=== PATIENT | female | born 1940 | race Caucasian/White ===

== ENCOUNTER → 2016-10-06 | Outpatient (CLI) | payer MEDICARE ==
[~2016-10-06] MED LIST: ASPI81TA11 PO; BUME1TAB PO; BUME1TAB26 PO; CARV3.125 PO; LACT PO; METR-1 PO; PLAV75TA29 PO
[2016-10-06 19:24] LABS: C. DIFF EPI 027 PRESUMPTIVE NEGATIVE (NEGATIVE); C. DIFF TOXIN PCR NEGATIVE (NEGATIVE)
== END ==
LOC: PLAB 15:01
PROVIDERS: ATTEND Family Medicine
DX: R19.7 Diarrhea, unspecified (principal)
CPT/HCPCS: 87493

== ENCOUNTER 2016-10-30 15:16 | Inpatient (IN) | payer MEDICARE ==
[~2016-10-30] VITALS: Ht 160 cm; Wt 48.0 kg
[2016-10-30 15:18] VITALS: BP 134/63; PULSE 86; RESP 14; TEMP 97.7; O2SAT 95
[2016-10-30] MEDS ORDERED: SODIUM CHLORIDE 0.9% FLUSH 10 ML FLUSH IVF PRN (16:45)
[2016-10-30] MEDS ORDERED: DIATRIZOATE MEGLUM/DIATRIZOATE SOD 9 ML CUP ONE (16:52)
--- NOTE | 2016-10-30 17:03 | RADRPT ---
EXAM DATE/TIME: 10/30/2016 16:42 [facility] COMPARISON: No previous studies available for comparison. INDICATIONS : Patient has been short of breath for two weeks. MEDICAL HISTORY : A-Fib, Atrial Stenosis. SURGICAL HISTORY : None. ENCOUNTER: Initial ACUITY: 2 weeks PAIN SCORE: 0/10 LOCATION: Bilateral chest FINDINGS: A single view of the chest demonstrates bilateral small effusions with concomitant atelectatic change s at the left base. Heart size is normal. There appears to be a partial left mastectomy with axillary emilia dissection. Osseous structures are intact. CONCLUSION: 1. Small bilateral pleural effusions and concomitant left basilar atelectatic changes. 2. Apparent partial left mastectomy with left axillary emilia dissection. Odell Redman MD on October 30, 2016 at 17:01 Board Certified Radiologist. This report was verified electronically.
[2016-10-30 17:13] VITALS: RESP 18; O2SAT 97
[2016-10-30 17:23] LABS: AUTOMATED NEUTROPHIL # 7.5 TH/MM3 (1.8-7.7); BASOPHIL # 0.1 TH/MM3 (0-0.2); BASOPHIL % 0.7 % (0.0-2.0); EOSINOPHIL # 0.4 TH/MM3 (0-0.4); EOSINOPHIL % 4.1 % (0.0-4.0); HEMO FLAGS DIFF FINAL; LYMPH % 17.1 % (9.0-44.0); LYMPHOCYTE # 1.8 TH/MM3 (1.0-4.8); MEAN CELL VOLUME 83.1 FL (80.0-100.0); MEAN CORPUSCULAR HEMOGLOBIN 27.3 PG (27.0-34.0); MEAN CORPUSCULAR HGB CONC 32.8 % (32.0-36.0); MONO % 6.8 % (0.0-8.0); NEUT % 71.3 % (16.0-70.0); PLATELET COUNT 363 TH/MM3 (150-450); RED BLOOD COUNT 4.45 MIL/MM3 (4.00-5.30); RED CELL DISTRIBUTION WIDTH 17.5 % (11.6-17.2); WHITE BLOOD COUNT 10.5 TH/MM3 (4.0-11.0)
[2016-10-30 17:42] LABS: APTT (PATIENT) 26.4 SEC (24.3-30.1); INTERNATIONAL NORMALIZED RATIO 1.1 RATIO; PROTHROMBIN TIME - PATIENT 12.4 SEC (9.8-11.6)
[2016-10-30 17:55] LABS: ALT (GPT) 41 U/L (10-53); ANION GAP 12 MEQ/L (5-15); AST (GOT) 51 U/L (15-37); BICARBONATE 24.9 MEQ/L (21.0-32.0); BLOOD UREA NITROGEN 22 MG/DL (7-18); CHLORIDE 101 MEQ/L (98-107); GLOMERULAR FILTRATION RATE 34 ML/MIN (>89); MAGNESIUM 2.2 MG/DL (1.5-2.5); POTASSIUM 3.5 MEQ/L (3.5-5.1); SODIUM (NA) 138 MEQ/L (136-145)
[2016-10-30 17:59] LABS: ALKALINE PHOSPHATASE 77 U/L (45-117); CREATINE KINASE 148 U/L (26-192); TOTAL BILIRUBIN ADULT 0.9 MG/DL (0.2-1.0)
[2016-10-30] MEDS ORDERED: ONDANSETRON HCL 4 MG/2 ML VIAL IV PUSH ONE (18:00)
--- NOTE | 2016-10-30 18:09 | PD ---
HPI Chief Complaint: Cardiac Complaint Time Seen by Provider: 17:00 Travel History International Travel<30 days: No Contact w/Intl Traveler<30days: No Traveled to known affect area: No History of Present Illness HPI 76-year-old female presents to emergency department with increasing exertional dyspnea over the past 2 weeks. Patient states history of severe aortic stenosis with history of CHF and bilateral pleural effusions drained at [facility] [place] approximately one month ago. Patient is a appointment to meet with Dr. Munoz regarding her aortic stenosis, which was postponed due to not getting records from [facility] regarding her echocardiogram, and cardiac workup that she had at that time. Patient is also had some ongoing lower abdominal discomfort, and colitis symptoms treated with Flagyl, although she was reportedly negative for C. difficile according to the patient. Patient was treated with antibiotics in [facility] for presumed pneumonia 6 weeks ago. Patient states 2 weeks ago she can walk and shop without difficulty. Now she can only walk approximately 10 feet without becoming winded to the point of needing to stop to rest. She denies chest pain or cough or fever. She states her abdominal discomfort is minimal but continues to be bothersome and crampy with frequent bowel movements 6 times daily at this time. She stopped the Flagyl approximately 1 week ago. She was noted to have a high white blood cell count during her last hospitalization. She was scheduled to have a CT of her abdomen and pelvis next week regarding her abdominal pain and elevated white count. Patient has a history of breast cancer with a partial mastectomy and lymph node removal on the left. She is currently on Bumex and Coreg for her CHF. She denies significant lower extremity edema. She has no urinary symptoms. She has no known drug allergies. PFSH Past Medical History Hx Anticoagulant Therapy: Yes (asa) Atrial Fibrillation: Yes Cancer: Yes (breast) Cardiovascular Problems: Yes (aortic stenosis) Past Surgical History Eye Surgery: Yes (left retina detach) Thoracic Surgery: Yes (left mastectomy and lumpectomy ) Social History Alcohol Use: No Tobacco Use: No Substance Use: No Allergies-Medications (Allergen,Severity, Reaction): Coded Allergies: Lasix (Verified Allergy, Unknown, 10/30/16) Reported Meds & Prescriptions Reported Meds & Active Scripts Active Reported Coreg (Carvedilol) 3.125 Mg Tab 3.125 Mg PO BID Aspirin EC (Aspirin) 81 Mg Tabdr 81 Mg PO DAILY Bumex (Bumetanide) 1 Mg Tab 1 Mg PO DAILY Review of Systems Except as stated in HPI: all other systems reviewed are Neg General / Constitutional: No: Fever, Chills Eyes: No: Visual changes HENT: No: Headaches, Sore Throat, Rhinitis, Rhinorrhea Cardiovascular: Positive: Irregular Rhythm, Dyspnea on exertion (see history of present illness), No: Chest Pain or Discomfort, Palpitations, Tachycardia ( patient has documented atrial fibrillation), Diaphoresis, Claudication Respiratory: No: Cough, Shortness of Breath, Wheezing Gastrointestinal: Positive: Abdominal Pain (see history present illness), Changes in Bowel Habits (see history of present illness), No: Nausea, Vomiting , Diarrhea Genitourinary: No: Dysuria Musculoskeletal: No: Pain Skin: No Rash Neurologic: No: Weakness Psychiatric: No: Depression Endocrine: No: Polydipsia Hematologic/Lymphatic: No: Easy Bruising Physical Exam Narrative GENERAL: Patient appears in no acute distress. She is talkative and pleasant. SKIN: Warm and dry. Normal color. Normal turgor. HEAD: Atraumatic. Normocephalic. EYES: Pupils equal and round. No scleral icterus. No injection or drainage. ENT: No nasal bleeding or discharge. Mucous membranes pink and somewhat dry. Pharynx is normal. Airway is patent. NECK: Trachea midline. Neck is supple. No significant JVD. CARDIOVASCULAR: Irregular rate and rhythm. 3+ systolic murmur consistent with patient's history. RESPIRATORY: No accessory muscle use. Clear to auscultation. No crackles or wheezes appreciated Breath sounds equal bilaterally. GASTROINTESTINAL: Abdomen soft, mild diffuse tenderness, nondistended. Hepatic and splenic margins not palpable. MUSCULOSKELETAL: Extremities without clubbing, cyanosis, or edema. No obvious deformities. NEUROLOGICAL: Awake and alert. No obvious cranial nerve deficits. Motor grossly within normal limits. Five out of 5 muscle strength in the arms and legs. Normal speech. PSYCHIATRIC: Appropriate mood and affect; insight and judgment normal. Data Data Last Documented VS Vital Signs Date Time Temp Pulse Resp B/P Pulse Ox O2 Delivery O2 Flow Rate FiO2 10/30/16 18:30 93 15 119/92 94 10/30/16 17:13 Room Air 10/30/16 15:18 97.7 Orders Electrocardiogram (10/30/16 ) Complete Blood Count With Diff (10/30/16 16:42) Comprehensive Metabolic Panel (10/30/16 16:42) B-Type Natriuretic Peptide (10/30/16 16:42) Act Partial Throm Time (Ptt) (10/30/16 16:42) Prothrombin Time / Inr (Pt) (10/30/16 16:42) Magnesium (Mg) (10/30/16 16:42) Ckmb (Isoenzyme) Profile (10/30/16 16:42) Troponin I (10/30/16 16:42) Urinalysis - C+S If Indicated (10/30/16 16:42) Iv Access Insert/Monitor (10/30/16 16:42) Ecg Monitoring (10/30/16 16:42) Oximetry (10/30/16 16:42) Oxygen Administration (10/30/16 16:42) Chest, Single Ap (10/30/16 16:42) Ct Abd/Pel W Iv Contrast(Rout) (10/30/16 16:42) NPO (10/30/16 16:42) Oral Contrast - Adult (10/30/16 16:49) Diatrizoate Liq ( Gastroview Liq) (10/30/16 16:52) CKMB (10/30/16 17:11) CKMB% (10/30/16 17:11) Ondansetron Inj (Zofran Inj) (10/30/16 18:00) Iodixanol 320 Inj (Rad Ct) (Visipaque 32 (10/30/16 18:50) Admit Order (Ed Use Only) (10/30/16 19:50) Labs Laboratory Tests Test 10/30/16 17:11 White Blood Count 10.5 TH/MM3 Red Blood Count 4.45 MIL/MM3 Hemoglobin 12.1 GM/DL Hematocrit 37.0 % Mean Corpuscular Volume 83.1 FL Mean Corpuscular Hemoglobin 27.3 PG Mean Corpuscular Hemoglobin 32.8 % Concent Red Cell Distribution Width 17.5 % Platelet Count 363 TH/MM3 Mean Platelet Volume 8.2 FL Neutrophils (%) (Auto) 71.3 % Lymphocytes (%) (Auto) 17.1 % Monocytes (%) (Auto) 6.8 % Eosinophils (%) (Auto) 4.1 % Basophils (%) (Auto) 0.7 % Neutrophils # (Auto) 7.5 TH/MM3 Lymphocytes # (Auto) 1.8 TH/MM3 Monocytes # (Auto) 0.7 TH/MM3 Eosinophils # (Auto) 0.4 TH/MM3 Basophils # (Auto) 0.1 TH/MM3 CBC Comment DIFF FINAL Differential Comment Prothrombin Time 12.4 SEC Prothromb Time International 1.1 RATIO Ratio Activated Partial 26.4 SEC Thromboplast Time Sodium Level 138 MEQ/L Potassium Level 3.5 MEQ/L Chloride Level 101 MEQ/L Carbon Dioxide Level 24.9 MEQ/L Anion Gap 12 MEQ/L Blood Urea Nitrogen 22 MG/DL Creatinine 1.47 MG/DL Estimat Glomerular Filtration 34 ML/MIN Rate Random Glucose 120 MG/DL Calcium Level 9.5 MG/DL Magnesium Level 2.2 MG/DL Total Bilirubin 0.9 MG/DL Aspartate Amino Transf 51 U/L (AST/SGOT) Alanine Aminotransferase 41 U/L (ALT/SGPT) Alkaline Phosphatase 77 U/L Total Creatine Kinase 148 U/L Creatine Kinase MB 1.3 NG/ML Troponin I 0.14 NG/ML B-Type Natriuretic Peptide 2330 PG/ML Total Protein 8.2 GM/DL Albumin 3.7 GM/DL [facility] Medical Decision Making Medical Screen Exam Complete: Yes Emergency Medical Condition: Yes Differential Diagnosis Exertional dyspnea. History of CHF. History of pleural effusions. Aortic stenosis. Abdominal discomfort. History of leukocytosis. Narrative Course Patient is medically stable at time of exam. Labs ordered including CBC, CMP, cardiac panel, proBNP, and urinalysis. EKG and chest x-ray is ordered. Abdominal CT with contrast with protocol was ordered. IV access is obtained. Patient is given 4 mg Zofran IV. CBC is unremarkable. CMP shows a BUN of 22, creatinine 1.47, GFR of 34, random glucose 120. AST slightly elevated at 51. Troponin slightly elevated 0.14. BNP is elevated at 2330. Coagulation studies are unremarkable with a PT of 12.4, and INR 1.1. Chest x-ray shows small bilateral pleural effusions and chronic mid left basilar atelectatic changes. Partial left mastectomy and left axillary node dissection are noted by radiologist. Abdominal CT shows mild mural thickening of the left: Characteristic of mild colitis without obstruction free fluid or free air. Per radiologist. Call was placed to Dr. Saucedo for hospitalization of the patient. Patient was discussed and she agrees to admit the patient for her increased dyspnea and CHF. Diagnosis Primary Impression: CHF due to valvular disease Additional Impressions: Dyspnea on exertion Pleural effusion Admitting Information Admitting Physician Requests: Admit Condition: Stable Dat Tena Oct 30, 2016 18:09
[2016-10-30 18:11] LABS: CKMB 1.3 NG/ML (0.5-3.6)
[2016-10-30 18:30] VITALS: BP 119/92; PULSE 93; RESP 15; O2SAT 94
[2016-10-30] MEDS ORDERED: ASPI81TA11 PO (18:42)
[2016-10-30] MEDS ORDERED: CARV3.125 PO (18:42)
[2016-10-30] MEDS ORDERED: BUME1TAB26 PO (18:42)
[2016-10-30] MEDS ORDERED: IODIXANOL 320 MG/ML 10 ML VIAL (for Rad CT) IV ONE (18:50)
--- NOTE | 2016-10-30 18:57 | PD ---
Data Data Last Documented VS Vital Signs Date Time Temp Pulse Resp B/P Pulse Ox O2 Delivery O2 Flow Rate FiO2 10/30/16 18:30 93 15 119/92 94 10/30/16 17:13 Room Air 10/30/16 15:18 97.7 Orders Electrocardiogram (10/30/16 ) Complete Blood Count With Diff (10/30/16 16:42) Comprehensive Metabolic Panel (10/30/16 16:42) B-Type Natriuretic Peptide (10/30/16 16:42) Act Partial Throm Time (Ptt) (10/30/16 16:42) Prothrombin Time / Inr (Pt) (10/30/16 16:42) Magnesium (Mg) (10/30/16 16:42) Ckmb (Isoenzyme) Profile (10/30/16 16:42) Troponin I (10/30/16 16:42) Urinalysis - C+S If Indicated (10/30/16 16:42) Iv Access Insert/Monitor (10/30/16 16:42) Ecg Monitoring (10/30/16 16:42) Oximetry (10/30/16 16:42) Oxygen Administration (10/30/16 16:42) Chest, Single Ap (10/30/16 16:42) Sodium Chloride 0.9% Flush (Ns Flush) (10/30/16 16:45) Ct Abd/Pel W Iv Contrast(Rout) (10/30/16 16:42) NPO (10/30/16 16:42) Oral Contrast - Adult (10/30/16 16:49) Diatrizoate Liq ( Gastrosandra Liq) (10/30/16 16:52) CKMB (10/30/16 17:11) CKMB% (10/30/16 17:11) Ondansetron Inj (Zofran Inj) (10/30/16 18:00) Iodixanol 320 Inj (Rad Ct) (Visipaque 32 (10/30/16 18:50) Labs Laboratory Tests Test 10/30/16 17:11 White Blood Count 10.5 TH/MM3 Red Blood Count 4.45 MIL/MM3 Hemoglobin 12.1 GM/DL Hematocrit 37.0 % Mean Corpuscular Volume 83.1 FL Mean Corpuscular Hemoglobin 27.3 PG Mean Corpuscular Hemoglobin 32.8 % Concent Red Cell Distribution Width 17.5 % Platelet Count 363 TH/MM3 Mean Platelet Volume 8.2 FL Neutrophils (%) (Auto) 71.3 % Lymphocytes (%) (Auto) 17.1 % Monocytes (%) (Auto) 6.8 % Eosinophils (%) (Auto) 4.1 % Basophils (%) (Auto) 0.7 % Neutrophils # (Auto) 7.5 TH/MM3 Lymphocytes # (Auto) 1.8 TH/MM3 Monocytes # (Auto) 0.7 TH/MM3 Eosinophils # (Auto) 0.4 TH/MM3 Basophils # (Auto) 0.1 TH/MM3 CBC Comment DIFF FINAL Differential Comment Prothrombin Time 12.4 SEC Prothromb Time International 1.1 RATIO Ratio Activated Partial 26.4 SEC Thromboplast Time Sodium Level 138 MEQ/L Potassium Level 3.5 MEQ/L Chloride Level 101 MEQ/L Carbon Dioxide Level 24.9 MEQ/L Anion Gap 12 MEQ/L Blood Urea Nitrogen 22 MG/DL Creatinine 1.47 MG/DL Estimat Glomerular Filtration 34 ML/MIN Rate Random Glucose 120 MG/DL Calcium Level 9.5 MG/DL Magnesium Level 2.2 MG/DL Total Bilirubin 0.9 MG/DL Aspartate Amino Transf 51 U/L (AST/SGOT) Alanine Aminotransferase 41 U/L (ALT/SGPT) Alkaline Phosphatase 77 U/L Total Creatine Kinase 148 U/L Creatine Kinase MB 1.3 NG/ML Troponin I 0.14 NG/ML B-Type Natriuretic Peptide 2330 PG/ML Total Protein 8.2 GM/DL Albumin 3.7 GM/DL MDM Supervised Visit with CARMEN: Yes Narrative Course The history, exam, and medical decision-making in the associated mid-level provider note were completed with my assistance. I reviewed and agree with the findings presented. I attest that I had a [id number] encounter with the patient on the same day, and personally performed and documented my assessment and findings in the medical record. *My assessment and Findings: 76-year-old woman with A. fib and aortic valve disease who presents to the emergency department worsening chest pain dyspnea on exertion and shortness of breath at evidence of worsening valve disease. She had seen Dr. Wise in [place] was planning for valve surgery however she was having some kind of unusual persistent leukocytosis at was preventing her from getting the surgery. She was treated for colitis. She was can have a follow-up appointment with Dr. Munoz for second opinion, was due to see him today but that appointment rescheduled. Family brought her in because she was having worsening dyspnea on exertion and shortness of breath symptoms. On exam she has prominent systolic and diastolic murmur. She has evidence of volume overload with pulmonary edema , pleural effusions, and elevated BNP. Troponins also mildly elevated. I think these are all suggestive of worsening aortic valve disease. We'll recommend admission, we'll try to get records from her recent heart catheter and echocardiogram from [facility], and cardiothoracic surgery consult. Condition: Stable Erwin Wallace MD Oct 30, 2016 18:57
--- NOTE | 2016-10-30 19:21 | RADRPT ---
EXAM DATE/TIME: 10/30/2016 18:49 [facility] COMPARISON: No previous studies available for comparison. INDICATIONS : Abdominal pain with colitis symptoms. IV CONTRAST: 50 cc Visipaque (iodixanol) IV ORAL CONTRAST: Prescribed oral contrast ingested. RADIATION DOSE: 4.52 CTDIvol (mGy) MEDICAL HISTORY : Carcinoma, breast. Aortic stenosis. SURGICAL HISTORY : None. ENCOUNTER: Initial ACUITY: 3 weeks PAIN SCALE: 8/10 LOCATION: abdomen TECHNIQUE: Volumetric scanning of the abdomen and pelvis was performed. Using automated exposure control and ad justment of the mA and/or kV according to patient size, radiation dose was kept as low as reasonably achievable to obtain optimal diagnostic quality images. FINDINGS: Moderate pleural effusions are present. There is basilar compressive atelectasis. Trace pericardial f luid. No acute findings in the liver, spleen, adrenals, kidneys or pancreas. There is no bowel obstruction. No free air or free fluid. Pessary present. Questionable mild mural th ickening of the left colon. CONCLUSION: 1. Mild mural thickening of the left colon characteristic of a mild colitis. No obstruction, free flu id or free air. 2. Moderate bilateral pleural effusions with basilar atelectasis. Jalil Bernstein MD on October 30, 2016 at 19:08 Board Certified Radiologist. This report was verified electronically.
[2016-10-30] MEDS ORDERED: NALOXONE HCL 0.4 MG/ML AMP IV PRN (20:00)
[2016-10-30] MEDS ORDERED: BUMETANIDE INJ 1 MG/4 ML VIAL IV PUSH ONE (20:00)
[2016-10-30] MEDS ORDERED: SODIUM CHLORIDE 0.9% FLUSH 10 ML FLUSH IV FLUSH PRN (20:00)
--- NOTE | 2016-10-30 20:29 | HHI.HP ---
HPI Service [facility] Primary Care Physician Janina Ahuja MD Admission Diagnosis CHF/Aortic Stenosis Diagnoses: Chief Complaint: Shortness of breath Travel History International Travel<30 Days: No Contact w/Intl Traveler <30 Da: No Traveled to Known Affected Are: No History of Present Illness History from patient, and your physician communication. Patient reported that she came to the hospital because she was short of breath in the past1 week. was also having weakness, decreased appetite, no leg swelling no cough no fever no chest pain she states that she was at [facility] for 2 weeks' duration. She was discharged on September 14, 2016. She states that she was managed for chf, bilateral pleural effusions was not on bipap, not intubated had thoracocentesis done last week of aug also had cardiac cath with Dr Dunlap on Aug 29 reports bumex does not work for her- but lasix did- though she developed a rash with lasix- they were unsure whether it was really lasix or cardizem also reports of diarrhea since hospital discharge was started on flagyl because of this by pcp- now diarrhea improved- cdiff was negative as outpatient also have associated abdominal pain diarrhea has mucus Review of Systems Except as stated in HPI: all other systems reviewed are Neg Past Family Social History Past Medical History htn chf afib COPD Past Surgical History left retinal detach left mastectomy lumpectomy Reported Medications pts med list on emr reviewed Allergies: Coded Allergies: Lasix (Verified Allergy, Unknown, 10/30/16) Family History father- cad mother- cancer lung / complications from sx - dic sister- glioblastoma Social History quit a few months ago Physical Exam Vital Signs Vital Signs Date Time Temp Pulse Resp B/P Pulse Ox O2 Delivery O2 Flow Rate FiO2 10/30/16 18:30 93 15 119/92 94 10/30/16 17:13 97 Room Air 10/30/16 17:13 18 97 Room Air 10/30/16 16:36 96 Room Air 10/30/16 15:18 97.7 86 14 134/63 95 Physical Exam GENERAL: This is a well-nourished, well-developed patient, in no apparent distress. SKIN: No rashes, ecchymoses or lesions. Cool and dry. HEAD: Atraumatic. Normocephalic. EYES:. No scleral icterus. No injection or drainage. ENT: Nose without bleeding, purulent drainage or septal hematoma. Airway patent. NECK: Trachea midline. No JVD, CARDIOVASCULAR: Regular rate and rhythm without gallops, or rubs. soft systolic murmur at aortic area radiating to neck RESPIRATORY: Clear to auscultation. Breath sounds equal bilaterally. No wheezes , rales, or rhonchi. GASTROINTESTINAL: Abdomen soft, tenderness mostly at left lower quadrant, nondistended. No guarding. MUSCULOSKELETAL: Extremities without clubbing, cyanosis, or edema. No joint tenderness, effusion, or edema noted. No calf tenderness. NEUROLOGICAL: Awake and alert. Motor and sensory grossly within normal limits. Normal speech. Laboratory Laboratory Tests Test 10/30/16 17:11 White Blood Count 10.5 Red Blood Count 4.45 Hemoglobin 12.1 Hematocrit 37.0 Mean Corpuscular Volume 83.1 Mean Corpuscular Hemoglobin 27.3 Mean Corpuscular Hemoglobin 32.8 Concent Red Cell Distribution Width 17.5 Platelet Count 363 Mean Platelet Volume 8.2 Neutrophils (%) (Auto) 71.3 Lymphocytes (%) (Auto) 17.1 Monocytes (%) (Auto) 6.8 Eosinophils (%) (Auto) 4.1 Basophils (%) (Auto) 0.7 Neutrophils # (Auto) 7.5 Lymphocytes # (Auto) 1.8 Monocytes # (Auto) 0.7 Eosinophils # (Auto) 0.4 Basophils # (Auto) 0.1 CBC Comment DIFF FINAL Differential Comment Prothrombin Time 12.4 Prothromb Time International 1.1 Ratio Activated Partial 26.4 Thromboplast Time Sodium Level 138 Potassium Level 3.5 Chloride Level 101 Carbon Dioxide Level 24.9 Anion Gap 12 Blood Urea Nitrogen 22 Creatinine 1.47 Estimat Glomerular Filtration 34 Rate Random Glucose 120 Calcium Level 9.5 Magnesium Level 2.2 Total Bilirubin 0.9 Aspartate Amino Transf 51 (AST/SGOT) Alanine Aminotransferase 41 (ALT/SGPT) Alkaline Phosphatase 77 Total Creatine Kinase 148 Creatine Kinase MB 1.3 Troponin I 0.14 B-Type Natriuretic Peptide 2330 Total Protein 8.2 Albumin 3.7 Result Diagram: 10/30/16 1711 10/30/16 1711 Imaging Last 48 hours Impressions Chest X-Ray 10/30/16 1642 Signed Impressions: Service Date/Time: October 16:42 - CONCLUSION: 1. Small bilateral pleural effusions and concomitant left basilar atelectatic changes. 2. Apparent partial left mastectomy with left axillary emilia dissection. Odell Redman MD Abdomen/Pelvis CT 10/30/16 1642 Signed Impressions: Service Date/Time: October 18:49 - CONCLUSION: 1. Mild mural thickening of the left colon characteristic of a mild colitis. No obstruction, free fluid or free air. 2. Moderate bilateral pleural effusions with basilar atelectasis. Jalil Bernstein MD Assessment and Plan Assessment and Plan Impression : Severe aortic stenosis- with now developing CHF Moderate pleural effusions- with recent thoracocentesis and now reaccumulation Diarrhea- with mucus Mild colitis on CT - had colitis and leukocytosis while at [facility] Renal failure- acute vs chronic Recent cardiac catheterization on Aug [address] Dunlap at [facility] CHF Afib- only on ASA as anticoagulation; pt is educated on this and would talk to her pcp. She does not have a restaurant service manager yet, and would like to know who to see from her pcp recommendation. COPD Plan : serial cardiac enzymes and ekg obtain records from [facility] start bumex 1mg bid - will not give tonight yet as pt is stable and BP on low side will likely need thoracocentesis- but pt would like to wait on this and see Dr Coleman first for possible AVR minimally invasive stool for cdiff stool cx stool ova and parasite would continue flagyl for now Resume her home medications. As to her atrial fibrillation, patient will be anticoagulated with Lovenox therapeutic dose renal dose. She is a candidate for stronger anticoagulation. However she will discuss with her PCP and a restaurant service manager upon discharge. Her PCP will be recommending her restaurant service manager of her choice. In the meantime, I would consult cardiothoracic surgeon Dr. Coleman as patient was recommended to see him by her PCP. Her appointment was supposed to be yesterday and it was canceled. She would like to know from the cardiothoracic surgeon regarding her surgical options of fixing this aortic valve problem. DVT prophylaxison Lovenox. Discussed Condition With Patient, ER physician, ER nurse Omar Saucedo MD Oct 30, 2016 20:29 Omar Saucedo MD Oct 30, 2016 20:29
[2016-10-30] MEDS: CARVEDILOL 3.125 MG TAB PO SCH (20:34)
[2016-10-30] MEDS: SODIUM CHLORIDE 0.9% FLUSH 10 ML FLUSH IV FLUSH SCH (20:56)
[2016-10-30 21:00] VITALS: BP 120/70; PULSE 92; RESP 20; O2SAT 93
[2016-10-30 22:00] VITALS: BP 99/62; PULSE 94; RESP 31; O2SAT 98
[2016-10-30 23:24] VITALS: BP 119/58; PULSE 76; RESP 18; TEMP 97.8; O2SAT 97
[2016-10-31] VITALS (8 sets, daily range): BP systolic 100–133; BP diastolic 50–66; PULSE 72–110; RESP 17–20; TEMP 97.3–98.3; O2SAT 94–98
[2016-10-31 06:08] LABS: AUTOMATED NEUTROPHIL # 7.5 TH/MM3 (1.8-7.7); BASOPHIL # 0.1 TH/MM3 (0-0.2); BASOPHIL % 0.9 % (0.0-2.0); EOSINOPHIL # 0.4 TH/MM3 (0-0.4); HEMATOCRIT 33.8 % (35.0-46.0); HEMO FLAGS DIFF FINAL; LYMPH % 19.3 % (9.0-44.0); LYMPHOCYTE # 2.1 TH/MM3 (1.0-4.8); MEAN CELL VOLUME 82.5 FL (80.0-100.0); MEAN CORPUSCULAR HEMOGLOBIN 26.5 PG (27.0-34.0); MEAN CORPUSCULAR HGB CONC 32.2 % (32.0-36.0); MONO % 8.1 % (0.0-8.0); NEUT % 67.7 % (16.0-70.0); PLATELET COUNT 300 TH/MM3 (150-450); RED BLOOD COUNT 4.09 MIL/MM3 (4.00-5.30); RED CELL DISTRIBUTION WIDTH 17.6 % (11.6-17.2); WHITE BLOOD COUNT 11.1 TH/MM3 (4.0-11.0)
[2016-10-31 06:50] LABS: BICARBONATE 27.1 MEQ/L (21.0-32.0); POTASSIUM 3.6 MEQ/L (3.5-5.1)
[2016-10-31] MEDS ORDERED: ENOXAPARIN SODIUM 60 MG/0.6 ML SYRINGE SQ SCH (08:45)
[2016-10-31] MEDS: ASPIRIN EC 81 MG TABEC PO SCH (08:48)
[2016-10-31] MEDS: CARVEDILOL 3.125 MG TAB PO SCH ×2 (08:48→22:32)
[2016-10-31] MEDS: SODIUM CHLORIDE 0.9% FLUSH 10 ML FLUSH IV FLUSH SCH ×2 (08:49→21:00)
[2016-10-31] MEDS: BUMETANIDE INJ 1 MG/4 ML VIAL IV PUSH SCH ×2 (08:49→18:04)
[2016-10-31] MEDS: metroNIDAZOLE 500 MG TAB PO SCH ×3 (12:15→22:32)
[2016-10-31] MEDS: ENOXAPARIN SODIUM 60 MG/0.6 ML SYRINGE SQ SCH (12:17)
--- NOTE | 2016-10-31 16:04 | HHI.PR ---
Subjective Remarks Follow up for aortic stenosis, shortness of breath, and colitis. The patient reports continued diarrhea overnight, approximately 4 episodes today. Denies any abdominal pain, nausea, or vomiting. She is tolerating oral intake. Denies fevers or chills. She does not follow with a GI doctor and states she absolutely does not want any endoscopy. She also reports continued shortness of breath, worse with any exertion. She is still only able to ambulate a few steps. Denies any chest pain. Denies leg swelling. She does not prefer to lay down therefore unsure if she is experiencing orthopnea. Objective Vitals Vital Signs Date Time Temp Pulse Resp B/P Pulse Ox O2 Delivery O2 Flow Rate FiO2 10/31/16 15:50 97.3 87 18 116/59 94 10/31/16 11:47 97.9 81 17 100/56 97 10/31/16 08:02 97.3 72 20 103/63 95 10/31/16 05:05 98.1 85 19 112/50 98 10/31/16 00:01 78 10/30/16 23:24 97.8 76 18 119/58 97 10/30/16 22:00 94 31 99/62 98 Nasal Cannula 2 10/30/16 21:00 92 20 120/70 93 Nasal Cannula 2 10/30/16 18:30 93 15 119/92 94 10/30/16 17:13 97 Room Air 10/30/16 17:13 18 97 Room Air 10/30/16 16:36 96 Room Air I/O 10/30/16 10/30/16 10/30/16 10/31/16 10/31/16 10/31/16 07:00 15:00 23:00 07:00 15:00 23:00 Intake Total 30 ml Balance 30 ml Intake Oral 30 ml # Bowel Movements 1 Result Diagram: 10/31/16 0554 10/31/16 0554 Imaging Last Impressions Chest X-Ray 10/30/161641 Signed Impressions: Service Date/Time: October 16:42 - CONCLUSION: 1. Small bilateral pleural effusions and concomitant left basilar atelectatic changes. 2. Apparent partial left mastectomy with left axillary emilia dissection. Odell Redman MD Abdomen/Pelvis CT 10/30/161641 Signed Impressions: Service Date/Time: October 18:49 - CONCLUSION: 1. Mild mural thickening of the left colon characteristic of a mild colitis. No obstruction, free fluid or free air. 2. Moderate bilateral pleural effusions with basilar atelectasis. Jalil Bernstein MD Objective Remarks GENERAL: Well-developed, well-nourished pleasant elderly female patient in [facility]. SKIN: Warm and dry. HEAD: Atraumatic. Normocephalic. EYES: Pupils equal and round. No scleral icterus. No injection or drainage. ENT: No nasal bleeding or discharge. Mucous membranes pink and moist. NECK: Trachea midline. CARDIOVASCULAR: Regular rate and rhythm. 3/6 systolic ejection murmur. RESPIRATORY: No accessory muscle use. Clear to auscultation. Breath sounds equal bilaterally. GASTROINTESTINAL: Abdomen soft, non-tender, nondistended. Normoactive bowel sounds x4. MUSCULOSKELETAL: Extremities without clubbing, cyanosis, or edema. No obvious deformities. NEUROLOGICAL: Awake and alert. No obvious cranial nerve deficits. Motor grossly within normal limits. 5/5 muscle strength in the arms and legs. Normal speech. PSYCHIATRIC: Appropriate mood and affect; insight and judgment normal. Medications and IVs Current Medications Medications (Trade) Dose Ordered Sig/Kaden Route Start Time Stop Time Status Last Admin (NS Flush) 2 ml UNSCH PRN IV FLUSH 10/30/16 20:00 (NS Flush) 2 ml BID IV FLUSH 10/30/16 21:00 10/31/16 08:49 (Narcan Inj) 0.4 mg UNSCH PRN IV 10/30/16 20:00 (Ecotrin Ec) 81 mg DAILY PO 10/31/16 09:00 10/31/16 08:48 (Coreg) 3.125 mg BID PO 10/30/16 21:00 10/31/16 08:48 (Bumex Inj) 1 mg BID@09,18 IV PUSH 10/31/16 09:00 10/31/16 08:49 (Lovenox Inj) 50 mg Q24H SQ 10/31/16 10:00 10/31/16 12:17 (Flagyl) 500 mg Q6HR PO 10/31/16 12:00 10/31/16 12:15 A/P Assessment and Plan 76-year-old female with history of hypertension, CHF, aortic stenosis, atrial fibrillation, COPD, presents with increasing shortness of breath 2 weeks, and ongoing diarrhea CHF Exacerbation secondary to Valvular Cardiomyopathy: SOB/BOWMAN x2 weeks. CXR images reviewed by me, shows small b/l pleural effusion and concomitant left basilar atelectasis. CT abd/pelvis showed moderate bilateral pleural effusion with basilar atelectasis. BNP 2330. Start on IV Bumex 1mg bid. Monitor Is&Os. O2 as needed (patient not on O2 at home). Continue patient's aspirin, Coreg. Pleural effusions: Seen on CT. Patient with left-sided thoracentesis in Aug 2016 at [facility]. If no improvement on IV Bumex, consider repeat thoracentesis. Severe Aortic Stenosis: Obtain records of C in Aug 2016 at [facility]. Consult cardiothoracic surgeon Dr. Coleman, recommends TAVR if no significant CAD. Awaiting records. Acute Colitis: CT abd/pelvis shows mild colitis of Left colon. Patient reports Cdiff negative when checked by PCP. Continue Flagyl 500mg q6h. Diet as tolerated. Patient declines any pain medication. Atrial fibrillation: Chronic. Started full strength Lovenox. 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 COPD: Chronic, stable, does not appear to be in exacerbation. DuoNeb as needed. DVT prophylaxis: Lovenox Written by Paloma Garcia, acting as scribe for Dr. Srinivasan on 10/31/16 at 16:02. All or portions of this note were transcribed by scribe Paloma Garcia. I, Dr. Allie Srinivasan personally performed the history, physical exam, and medical decision making; and confirmed the accuracy of the information in the transcribed note. Authenticated by Dr. Allie Srinivasan on 10/31/16 at 16:02. Paloma Garcia PA-C Oct 31, 2016 16:04 Allie Srinivasan MD Oct 31, 2016 18:45
--- NOTE | 2016-10-31 16:11 | PD.CONS ---
History of Present Illness Service CT Surgery Consult Requested By Dr. Sheryl Ahuja Reason for Consult Severe/critical aortic stenosis with class 4 symptoms Primary Care Physician Janina Ahuja MD Diagnoses: (1) Pleural effusion (2) Dyspnea on exertion (3) CHF due to valvular disease (4) COPD (chronic obstructive pulmonary disease) (5) Aortic stenosis History of Present Illness 6y/o female presented to Dr. Ahuja approximately 2-3 yrs ago with known aortic valve disease. She was referred to cardiology, but did not follow-up. Unfortunately, she developed severe exertional dyspnea and saw Dr. Dunlap at [facility] for evaluation in August. She was referred to the ED there for severe dyspnea and admitted with presumed pneumonia and CHF exacerbation. She underwent echo and LHC, found to have severe/critical , evaluated by Dr. Wise for AVR, but surgery was delayed to to her ongoing leukocytosis. She states she developed C Diff secondary to antibiotics and continues to have loose stools presently. She was setup for a second opinion in my office as an outpatient, but developed severe dyspnea leading to her ED visit at [place] yesterday. She denies PND or orthopnea. She c/o palpitations intermittently. She denies chest pain, ,but cannot walk more than 50 ft without stopping. She lives alone and has been driving, but states she can't take care of herself in her current state. Review of Systems Constitutional: COMPLAINS OF: Weight loss, DENIES: Diaphoretic episodes, Fatigue, Fever, Weight gain, Chills, Dizziness, Change in appetite, Night Sweats Endocrine: DENIES: Abnorml menstrual pattern, Heat/cold intolerance, Polydipsia , Polyuria, Polyphagia Eyes: DENIES: Blurred vision, Diplopia, Eye inflammation, Eye pain, Vision loss , Photosensitivity, Double Vision Ears, nose, mouth, throat: DENIES: Tinnitus, Hearing loss, Vertigo, Nasal discharge, Oral lesions, Throat pain, Hoarseness, Ear Pain, Running Nose, Epistaxis, Sinus Pain, Toothache, Odynophagia Respiratory: COMPLAINS OF: Cough, Shortness of breath, DENIES: Apneas, Snoring , Wheezing, Hemoptysis, Sputum production Cardiovascular: COMPLAINS OF: Palpitations, Dyspnea on Exertion, DENIES: Chest pain, Syncope, PND, Lower Extremity Edema, Orthopnea, Claudication Gastrointestinal: COMPLAINS OF: Diarrhea, DENIES: Abdominal pain, Black stools , Bloody stools, Constipation, Nausea, Vomiting, Difficulty Swallowing, Anorexia Genitourinary: DENIES: Abnormal vaginal bleeding, Dysmenorrhea, Dyspareunia, Sexual dysfunction, Urinary frequency, Urinary incontinence, Urgency, Hematuria , Dysuria, Nocturia, Vaginal discharge Musculoskeletal: DENIES: Joint pain, Muscle aches, Stiffness, Joint Swelling, Back pain, Neck pain Integumentary: DENIES: Abnormal pigmentation, Pruritus, Rash, Nail changes, Breast masses, Breast skin changes, Nipple discharge Hematologic/lymphatic: DENIES: Bruising, Lymphadenopathy Immunologic/allergic: DENIES: Eczema, Urticaria Neurologic: DENIES: Abnormal gait, Headache, Localized weakness, Paresthesias, Seizures, Speech Problems, Tremor, Poor Balance Psychiatric: DENIES: Anxiety, Confusion, Mood changes, Depression, Hallucinations, Agitation, Suicidal Ideation, Homicidal Ideation, Delusions Past Family Social History Allergies: Coded Allergies: Lasix (Verified Allergy, Unknown, 10/30/16) Past Medical History Past Medical History htn chf afib COPD Past Surgical History left retinal detach left mastectomy lumpectomy Reported Medications pts med list on emr reviewed Family History father- cad mother- cancer lung / complications from sx - dic sister- glioblastoma Social History she was a heavy smoker most of her life, but quit when her dyspnea worsened. Denies ETOH Lives alone without immediate family support Active Ordered Medications Current Medications Medications (Trade) Dose Ordered Sig/Kaden Route Start Time Stop Time Status Last Admin (NS Flush) 2 ml UNSCH PRN IV FLUSH 10/30/16 20:00 (NS Flush) 2 ml BID IV FLUSH 10/30/16 21:00 10/31/16 08:49 (Narcan Inj) 0.4 mg UNSCH PRN IV 10/30/16 20:00 (Ecotrin Ec) 81 mg DAILY PO 10/31/16 09:00 10/31/16 08:48 (Coreg) 3.125 mg BID PO 10/30/16 21:00 10/31/16 08:48 (Bumex Inj) 1 mg BID@09,18 IV PUSH 10/31/16 09:00 10/31/16 08:49 (Lovenox Inj) 50 mg Q24H SQ 10/31/16 10:00 10/31/16 12:17 (Flagyl) 500 mg Q6HR PO 10/31/16 12:00 10/31/16 12:15 Physical Exam Vital Signs Vital Signs Date Time Temp Pulse Resp B/P Pulse Ox O2 Delivery O2 Flow Rate FiO2 10/31/16 11:47 97.9 81 17 100/56 97 10/31/16 08:02 97.3 72 20 103/63 95 10/31/16 05:05 98.1 85 19 112/50 98 10/31/16 00:01 78 10/30/16 23:24 97.8 76 18 119/58 97 10/30/16 22:00 94 31 99/62 98 Nasal Cannula 2 10/30/16 21:00 92 20 120/70 93 Nasal Cannula 2 10/30/16 18:30 93 15 119/92 94 10/30/16 17:13 97 Room Air 10/30/16 17:13 18 97 Room Air 10/30/16 16:36 96 Room Air Physical Exam GENERAL: This is a cachectic, frail appearing patient, in no apparent distress. SKIN: No rashes, ecchymoses or lesions. Cool and dry. HEAD: Atraumatic. Normocephalic. No temporal or scalp tenderness. EYES: Pupils equal round and reactive. Extraocular motions intact. No scleral icterus. No injection or drainage. ENT: Nose without bleeding, purulent drainage or septal hematoma. Throat without erythema, tonsillar hypertrophy or exudate. Uvula midline. Airway patent. NECK: Trachea midline. No JVD or lymphadenopathy. Supple, nontender, no meningeal signs. CARDIOVASCULAR: Regular rate and rhythm with 2/6 JUSTIN. RESPIRATORY: Decreased BS bilaterally with few crackles and wheezes. GASTROINTESTINAL: Abdomen soft, non-tender, nondistended. No hepato-splenomegaly , or palpable masses. No guarding. MUSCULOSKELETAL: Extremities without clubbing, cyanosis, or edema. No joint tenderness, effusion, or edema noted. No calf tenderness. Negative Homans sign bilaterally. NEUROLOGICAL: Awake and alert. Cranial nerves II through XII intact. Motor and sensory grossly within normal limits. Five out of 5 muscle strength in all muscle groups. Normal speech. Laboratory Laboratory Tests Test 10/30/16 10/31/16 10/31/16 17:11 00:04 05:54 White Blood Count 10.5 11.1 Red Blood Count 4.45 4.09 Hemoglobin 12.1 10.9 Hematocrit 37.0 33.8 Mean Corpuscular Volume 83.1 82.5 Mean Corpuscular Hemoglobin 27.3 26.5 Mean Corpuscular Hemoglobin 32.8 32.2 Concent Red Cell Distribution Width 17.5 17.6 Platelet Count 363 300 Mean Platelet Volume 8.2 7.8 Neutrophils (%) (Auto) 71.3 67.7 Lymphocytes (%) (Auto) 17.1 19.3 Monocytes (%) (Auto) 6.8 8.1 Eosinophils (%) (Auto) 4.1 4.0 Basophils (%) (Auto) 0.7 0.9 Neutrophils # (Auto) 7.5 7.5 Lymphocytes # (Auto) 1.8 2.1 Monocytes # (Auto) 0.7 0.9 Eosinophils # (Auto) 0.4 0.4 Basophils # (Auto) 0.1 0.1 CBC Comment DIFF FINAL DIFF FINAL Differential Comment Prothrombin Time 12.4 Prothromb Time International 1.1 Ratio Activated Partial 26.4 Thromboplast Time Sodium Level 138 139 Potassium Level 3.5 3.6 Chloride Level 101 102 Carbon Dioxide Level 24.9 27.1 Anion Gap 12 10 Blood Urea Nitrogen 22 23 Creatinine 1.47 1.50 Estimat Glomerular Filtration 34 34 Rate Random Glucose 120 114 Calcium Level 9.5 9.1 Magnesium Level 2.2 Total Bilirubin 0.9 Aspartate Amino Transf 51 (AST/SGOT) Alanine Aminotransferase 41 (ALT/SGPT) Alkaline Phosphatase 77 Total Creatine Kinase 148 129 136 Creatine Kinase MB 1.3 Troponin I 0.14 0.13 0.14 B-Type Natriuretic Peptide 2330 Total Protein 8.2 Albumin 3.7 Date/Time Procedure Status Source Growth 10/31/16 13:50 Cryptosporidium Exam Received Stool Stool Pending 10/31/16 13:50 Giardia Antigen ([facility]) Received Stool Stool Pending 10/31/16 13:50 Received Stool Stool Pending Result Diagram: 10/31/16 0554 10/31/16 0554 Imaging Last Impressions Chest X-Ray 10/30/16 1642 Signed Impressions: Service Date/Time: October 16:42 - CONCLUSION: 1. Small bilateral pleural effusions and concomitant left basilar atelectatic changes. 2. Apparent partial left mastectomy with left axillary emilia dissection. Odell Redman MD Abdomen/Pelvis CT 10/30/16 1642 Signed Impressions: Service Date/Time: October 18:49 - CONCLUSION: 1. Mild mural thickening of the left colon characteristic of a mild colitis. No obstruction, free fluid or free air. 2. Moderate bilateral pleural effusions with basilar atelectasis. Jalil Bernstein MD Course She is presently resting comfortably in an observation bed. Her FEV1 was 1.06 liters in August. Assessment and Plan Problem List: (1) CHF due to valvular disease Status: Acute (2) COPD (chronic obstructive pulmonary disease) Status: Acute (3) Aortic stenosis Status: Acute Assessment and Plan 76y/o female with class 4 NYHA symptoms secondary to with severe COPD as well. She has become quite frail over the past 2 months secondary to her illness in addition to C Diff colitis. She has lost ~10 lbs as well. I reviewed her ABD/Pelvis CT scan and she quite a bit of calcium throughout her aorta. She had a left heart cath in August at [facility], but those records are unavailable today. By her report, she has no CAD. IF she has no significant CAD, TAVR would likely be her best option given her functional status. I discussed this with her and potential transfer for this procedure and she is in agreement. Will follow and make final determination once I see her cath films. Problem Qualifiers (1) COPD (chronic obstructive pulmonary disease): Qualified Code: J43.9 - Pulmonary emphysema, unspecified emphysema type (2) Aortic stenosis: Qualified Code: I35.0 - Aortic valve stenosis, unspecified etiology Jodi Coleman MD Oct 31, 2016 16:11
[2016-10-31] MEDS ORDERED: RESP: ALBUTEROL 2.5 MG/IPRATROPIUM 0.5 MG NEB (PRN) NEB (18:15)
[2016-11-01] VITALS (7 sets, daily range): BP systolic 101–116; BP diastolic 52–69; PULSE 80–109; RESP 17–20; TEMP 97.8–98.1; O2SAT 91–97
[2016-11-01] MEDS: metroNIDAZOLE 500 MG TAB PO SCH ×3 (05:41→17:48)
--- NOTE | 2016-11-01 08:22 | HHI.PR ---
Subjective Remarks Follow up for CHF exacerbation, aortic stenosis, colitis. The patient reports no significant shortness of breath while at rest however continues to experience dyspnea with minimal exertion. She feels her breathing is slightly better than yesterday. Denies cough, fevers/chills. No abdominal pain, nausea/ vomiting. No diarrhea overnight. Tolerating oral intake. Objective Vitals Vital Signs Date Time Temp Pulse Resp B/P Pulse Ox O2 Delivery O2 Flow Rate FiO2 11/01/16 07:51 98.0 84 18 116/69 91 11/01/16 03:20 98.1 84 18 113/58 96 10/31/16 23:08 98.2 98 18 111/55 95 10/31/16 20:00 89 10/31/16 19:28 98.3 110 19 133/66 97 10/31/16 15:50 97.3 87 18 116/59 94 10/31/16 11:47 97.9 81 17 100/56 97 I/O 10/31/16 10/31/16 10/31/16 11/01/16 11/01/16 11/01/16 07:00 15:00 23:00 07:00 15:00 23:00 Intake Total 30 ml Balance 30 ml Intake Oral 30 ml # Voids 2 Result Diagram: 10/31/16 0554 10/31/16 0554 Imaging Last Impressions Chest X-Ray 10/30/161641 Signed Impressions: Service Date/Time: October 16:42 - CONCLUSION: 1. Small bilateral pleural effusions and concomitant left basilar atelectatic changes. 2. Apparent partial left mastectomy with left axillary emilia dissection. Odell Redman MD Abdomen/Pelvis CT 10/30/161641 Signed Impressions: Service Date/Time: October 18:49 - CONCLUSION: 1. Mild mural thickening of the left colon characteristic of a mild colitis. No obstruction, free fluid or free air. 2. Moderate bilateral pleural effusions with basilar atelectasis. Jalil Bernstein MD Objective Remarks GENERAL: Well-developed, well-nourished pleasant elderly female patient in [facility]. SKIN: Warm and dry. HEENT: Atraumatic. Normocephalic. Pupils equal and round. No scleral icterus. No injection or drainage. Mucous membranes pink and moist. NECK: Trachea midline. CARDIOVASCULAR: Regular rate and rhythm. 3/6 systolic ejection murmur. RESPIRATORY: No accessory muscle use. Clear to auscultation. Breath sounds equal bilaterally. GASTROINTESTINAL: Abdomen soft, non-tender, nondistended. Normoactive bowel sounds x4. MUSCULOSKELETAL: Extremities without clubbing, cyanosis, or edema. No obvious deformities. NEUROLOGICAL: Awake and alert. No obvious cranial nerve deficits. Motor grossly within normal limits. 5/5 muscle strength in the arms and legs. Normal speech. PSYCHIATRIC: Appropriate mood and affect; insight and judgment normal. Medications and IVs Current Medications Medications (Trade) Dose Ordered Sig/Kaden Route Start Time Stop Time Status Last Admin (NS Flush) 2 ml UNSCH PRN IV FLUSH 10/30/16 20:00 10/31/16 18:04 (NS Flush) 2 ml BID IV FLUSH 10/30/16 21:00 11/01/16 09:00 (Narcan Inj) 0.4 mg UNSCH PRN IV 10/30/16 20:00 (Ecotrin Ec) 81 mg DAILY PO 10/31/16 09:00 11/01/16 09:20 (Coreg) 3.125 mg BID PO 10/30/16 21:00 11/01/16 09:20 (Bumex Inj) 1 mg BID@09,18 IV PUSH 10/31/16 09:00 11/01/16 09:20 (Lovenox Inj) 50 mg Q24H SQ 10/31/16 10:00 11/01/16 09:20 (Flagyl) 500 mg Q6HR PO 10/31/16 12:00 11/01/16 05:41 Urinary Catheter: No Vascular Central Line Catheter: No A/P Assessment and Plan 76-year-old female with history of hypertension, CHF, aortic stenosis, atrial fibrillation, COPD, presents with increasing shortness of breath 2 weeks, and ongoing diarrhea CHF Exacerbation secondary to Valvular Cardiomyopathy: SOB/BOWMAN x2 weeks. CXR images reviewed by me, shows small b/l pleural effusion and concomitant left basilar atelectasis. CT abd/pelvis showed moderate bilateral pleural effusion with basilar atelectasis. BNP 2330. Continue on IV Bumex 1mg bid. Monitor Is& Os. O2 as needed (patient not on O2 at home). Continue patient's aspirin, Coreg. Pleural effusions: Seen on CT. Patient with left-sided thoracentesis in Aug 2016 at [facility]. If no improvement on IV Bumex, consider repeat thoracentesis. Severe Aortic Stenosis: Obtain records of C in Aug 2016 at [facility]. Consulted cardiothoracic surgeon Dr. Coleman, recommends TAVR if no significant CAD. Awaiting records. Acute Colitis: CT abd/pelvis shows mild colitis of Left colon. Patient reports Cdiff negative when checked by PCP. Continue Flagyl 500mg q6h. Diet as tolerated. Patient declines any pain medication. Atrial fibrillation: Chronic. Started full strength Lovenox. 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 COPD: Chronic, stable, does not appear to be in exacerbation. DuoNeb as needed. DVT prophylaxis: Lovenox Written by Paloma Garcia, acting as scribe for Dr. Srinivasan on 11/01/16 at 08:20. All or portions of this note were transcribed by scribe Paloma SCALES. I, Dr. Allie Srinivasan personally performed the history, physical exam, and medical decision making; and confirmed the accuracy of the information in the transcribed note. Authenticated by Dr. Allie Srinivasan on 11/01/16 at 08:20. Paloma Garcia PA-C Nov 01, 2016 08:21 Allie Srinivasan MD Nov 01, 2016 13:00
[2016-11-01] MEDS: SODIUM CHLORIDE 0.9% FLUSH 10 ML FLUSH IV FLUSH SCH ×2 (09:00→20:22)
[2016-11-01] MEDS: ASPIRIN EC 81 MG TABEC PO SCH (09:20)
[2016-11-01] MEDS: BUMETANIDE INJ 1 MG/4 ML VIAL IV PUSH SCH ×2 (09:20→17:48)
[2016-11-01] MEDS: CARVEDILOL 3.125 MG TAB PO SCH ×2 (09:20→20:21)
[2016-11-01] MEDS: ENOXAPARIN SODIUM 60 MG/0.6 ML SYRINGE SQ SCH (09:20)
[2016-11-01 10:50] LABS: AUTOMATED NEUTROPHIL # 9.4 TH/MM3 (1.8-7.7); BASOPHIL # 0.1 TH/MM3 (0-0.2); BASOPHIL % 0.7 % (0.0-2.0); EOSINOPHIL # 0.5 TH/MM3 (0-0.4); EOSINOPHIL % 4.4 % (0.0-4.0); HEMATOCRIT 34.2 % (35.0-46.0); HEMO FLAGS DIFF FINAL; LYMPHOCYTE # 1.2 TH/MM3 (1.0-4.8); MEAN CELL VOLUME 83.1 FL (80.0-100.0); MEAN CORPUSCULAR HEMOGLOBIN 26.9 PG (27.0-34.0); MEAN CORPUSCULAR HGB CONC 32.4 % (32.0-36.0); MONO % 6.2 % (0.0-8.0); NEUT % 78.7 % (16.0-70.0); PLATELET COUNT 298 TH/MM3 (150-450); RED BLOOD COUNT 4.12 MIL/MM3 (4.00-5.30); RED CELL DISTRIBUTION WIDTH 17.8 % (11.6-17.2); WHITE BLOOD COUNT 11.9 TH/MM3 (4.0-11.0)
--- NOTE | 2016-11-01 11:03 | EKG ---
Date Performed: 10/31/2016 Time Performed: 05:03:07 PTAGE: 76 years EKG: ATRIAL FIBRILLATION WITH ABERRANT CONDUCTION OR VENTRICULAR PREMATURE COMPLEXES BORDERLINE LEFT AXIS DEVIATION NONSPECIFIC ST & T-WAVE ABNORMALITY ABNORMAL RHYTHM ECG PREVIOUS TRACING : 10/30/2016 23.21 DOCTOR: Codi Durham Interpretating Date/Time 11/01/2016 11:00:50
--- NOTE | 2016-11-01 11:08 | EKG ---
Date Performed: 10/30/2016 Time Performed: 23:21:23 PTAGE: 76 years EKG: ATRIAL FIBRILLATION MARKED LEFT AXIS DEVIATION MINIMAL VOLTAGE CRITERIA FOR LVH, CONSIDER N ORMAL VARIANT POSSIBLE ANTERIOR MYOCARDIAL INFARCTION ABNORMAL ECG PREVIOUS TRACING : 10/30/2016 16.03 DOCTOR: Codi Durham Interpretating Date/Time 11/01/2016 11:04:08
--- NOTE | 2016-11-01 11:17 | EKG ---
Date Performed: 10/30/2016 Time Performed: 16:03:27 PTAGE: 76 years EKG: ATRIAL FIBRILLATION WITH ABERRANT CONDUCTION OR VENTRICULAR PREMATURE COMPLEXES BORDERLINE LEFT AXIS DEVIATION NONSPECIFIC ST & T-WAVE ABNORMALITY ABNORMAL RHYTHM ECG NO PREVIOUS TRACING DOCTOR: Codi Durham Interpretating Date/Time 11/01/2016 11:13:59
[2016-11-01 11:20] LABS: BICARBONATE 29.4 MEQ/L (21.0-32.0); POTASSIUM 3.1 MEQ/L (3.5-5.1)
[2016-11-01] MEDS ORDERED: POTASSIUM CHLORIDE 20 MEQ CONTROLLED RELEASE TAB PO ONE (12:30)
[2016-11-01 19:58] LABS: BLOOD, URINE NEG (NEG); GLUCOSE,URINE NEG (NEG); HYALINE CAST, URINE 15 /lpf (RARE); KETONE, URINE NEG (NEG); MUCUS URINE FEW /lpf (OCC); NITRITE,URINE NEG (NEG); SQUAMOUS EPITHELIAL CELL URINE 5 /hpf (0-5); URINE COLOR YELLOW (YELLW/STRAW)
[2016-11-01 19:59] LABS: BACTERIA, URINE MOD /hpf; COMMENT (UR) CULTURE INDICATED; CULTURE IF INDICATED CULTURE INDICATED
[2016-11-02] VITALS (8 sets, daily range): BP systolic 91–130; BP diastolic 48–73; PULSE 71–103; RESP 16–18; TEMP 95.4–98.4; O2SAT 94–99
[2016-11-02] MEDS: metroNIDAZOLE 500 MG TAB PO SCH ×4 (00:18→17:26)
[2016-11-02 05:27] LABS: AUTOMATED NEUTROPHIL # 7.9 TH/MM3 (1.8-7.7); BASOPHIL # 0.1 TH/MM3 (0-0.2); BASOPHIL % 0.9 % (0.0-2.0); EOSINOPHIL # 0.8 TH/MM3 (0-0.4); EOSINOPHIL % 6.7 % (0.0-4.0); HEMATOCRIT 32.8 % (35.0-46.0); HEMO FLAGS DIFF FINAL; LYMPH % 12.7 % (9.0-44.0); LYMPHOCYTE # 1.4 TH/MM3 (1.0-4.8); MEAN CELL VOLUME 83.3 FL (80.0-100.0); MEAN CORPUSCULAR HEMOGLOBIN 27.4 PG (27.0-34.0); MONO % 9.4 % (0.0-8.0); NEUT % 70.3 % (16.0-70.0); PLATELET COUNT 292 TH/MM3 (150-450); RED BLOOD COUNT 3.94 MIL/MM3 (4.00-5.30); RED CELL DISTRIBUTION WIDTH 17.6 % (11.6-17.2); WHITE BLOOD COUNT 11.3 TH/MM3 (4.0-11.0)
[2016-11-02 05:42] LABS: BICARBONATE 28.7 MEQ/L (21.0-32.0); MAGNESIUM 2.1 MG/DL (1.5-2.5); POTASSIUM 3.5 MEQ/L (3.5-5.1)
--- NOTE | 2016-11-02 08:05 | HHI.PR ---
Subjective Remarks Follow up for CHF exacerbation, aortic stenosis, colitis. She reports continued shortness of breath, minimally better compared to yesterday, always worse with exertion. Denies any dysuria, increased urinary frequency or urgency. Denies fevers/chills. Discussed her abnormal urinalysis with possible UTI, the patient adamantly does not want to start any additional antibiotics for UTI after thorough discussion, she prefers to wait for urine culture. Records obtained from [facility], in the chart. Objective Vitals Vital Signs Date Time Temp Pulse Resp B/P Pulse Ox O2 Delivery O2 Flow Rate FiO2 11/02/16 07:41 97.0 95 16 106/48 95 11/02/16 05:06 97.8 85 18 107/55 96 11/01/16 20:00 86 11/01/16 19:33 97.8 86 18 104/63 97 11/01/16 15:54 97.8 94 20 101/52 93 11/01/16 11:56 97.8 80 17 109/54 94 11/01/16 08:00 109 I/O 11/01/16 11/01/16 11/01/16 11/02/16 11/02/16 11/02/16 07:00 15:00 23:00 07:00 15:00 23:00 Intake Total 240 ml 240 ml Balance 240 ml 240 ml Intake Oral 240 ml 240 ml # Voids 2 1 1 1 Result Diagram: 11/02/16 0504 11/02/16 0504 Imaging Last Impressions Chest X-Ray 10/30/16 1642 Signed Impressions: Service Date/Time: October 16:42 - CONCLUSION: 1. Small bilateral pleural effusions and concomitant left basilar atelectatic changes. 2. Apparent partial left mastectomy with left axillary emilia dissection. Odell Redman MD Abdomen/Pelvis CT 10/30/16 1642 Signed Impressions: Service Date/Time: October 18:49 - CONCLUSION: 1. Mild mural thickening of the left colon characteristic of a mild colitis. No obstruction, free fluid or free air. 2. Moderate bilateral pleural effusions with basilar atelectasis. Jalil Bernstein MD Objective Remarks GENERAL: Well-developed, well-nourished pleasant elderly female patient in [facility]. SKIN: Warm and dry. HEENT: Atraumatic. Normocephalic. Pupils equal and round. No scleral icterus. No injection or drainage. Mucous membranes pink and moist. NECK: Trachea midline. CARDIOVASCULAR: Regular rate and rhythm. 3/6 systolic ejection murmur. RESPIRATORY: No accessory muscle use. Clear to auscultation. Breath sounds equal bilaterally. GASTROINTESTINAL: Abdomen soft, non-tender, nondistended. Normoactive bowel sounds x4. MUSCULOSKELETAL: Extremities without clubbing, cyanosis, or edema. No obvious deformities. NEUROLOGICAL: Awake and alert. No obvious cranial nerve deficits. Motor grossly within normal limits. Normal speech. PSYCHIATRIC: Appropriate mood and affect; insight and judgment normal. Medications and IVs Current Medications Medications (Trade) Dose Ordered Sig/Kaden Route Start Time Stop Time Status Last Admin (NS Flush) 2 ml UNSCH PRN IV FLUSH 10/30/16 20:00 10/31/16 18:04 (NS Flush) 2 ml BID IV FLUSH 10/30/16 21:00 11/01/16 20:22 (Narcan Inj) 0.4 mg UNSCH PRN IV 10/30/16 20:00 (Ecotrin Ec) 81 mg DAILY PO 10/31/16 09:00 11/01/16 09:20 (Coreg) 3.125 mg BID PO 10/30/16 21:00 11/01/16 09:20 (Bumex Inj) 1 mg BID@09,18 IV PUSH 10/31/16 09:00 11/01/16 17:48 (Lovenox Inj) 50 mg Q24H SQ 10/31/16 10:00 11/01/16 09:20 (Flagyl) 500 mg Q6HR PO 10/31/16 12:00 11/02/16 05:41 Urinary Catheter: No Vascular Central Line Catheter: No A/P Assessment and Plan 76-year-old female with history of hypertension, CHF, aortic stenosis, atrial fibrillation, COPD, presents with increasing shortness of breath 2 weeks, and ongoing diarrhea CHF Exacerbation secondary to Valvular Cardiomyopathy: SOB/BOWMAN x2 weeks. CXR images reviewed by me, shows small b/l pleural effusion and concomitant left basilar atelectasis. CT abd/pelvis showed moderate bilateral pleural effusion with basilar atelectasis. BNP 2330 --> 2085 --> 1670. Continue on IV Bumex 1mg bid. Monitor Is&Os. O2 as needed (patient not on O2 at home). Continue patient' s aspirin, Coreg. Pleural effusions: Seen on CT. Patient with left-sided thoracentesis in Aug 2016 at [facility]. If no improvement on IV Bumex, consider repeat thoracentesis. Severe Aortic Stenosis: Consulted cardiothoracic surgeon Dr. Coleman, recommends TAVR if no significant CAD. Obtained records from of Cardiac Catheterization 08/29/[address] Dunlap showed mild occlusive disease noted in the LAD; no further intervention indicated; at least moderate aortic stenosis, peak- to-peak pressure gradient in 30-55mmHg. Acute Colitis: CT abd/pelvis shows mild colitis of Left colon. Patient reports Cdiff negative when checked by PCP. Continue Flagyl 500mg q6h. Diet as tolerated. Patient declines any pain medication. Abnormal UA: UA with large leuks, 32 WBCs, mod bacteria. The patient adamantly does not want to start abx at this time as she has no urinary symptoms, unless culture positive. Urine culture pending. Atrial fibrillation: Chronic. Started full strength Lovenox. 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 COPD: Chronic, stable, does not appear to be in exacerbation. DuoNeb as needed. DVT prophylaxis: Lovenox Written by Paloma Garcia, acting as scribe for Dr. Srinivasan on 11/02/16 at 08:40 All or portions of this note were transcribed by scribe Paloma Garcia . I, Dr. Allie Srinivasan personally performed the history, physical exam, and medical decision making; and confirmed the accuracy of the information in the transcribed note. Authenticated by Dr. Allie Srinivasan on 11/02/16 at 08:40 Paloma Garcia PA-C Nov 02, 2016 08:05 Allie Srinivasan MD Nov 02, 2016 14:40
[2016-11-02] MEDS: SODIUM CHLORIDE 0.9% FLUSH 10 ML FLUSH IV FLUSH SCH ×2 (08:30→22:00)
[2016-11-02] MEDS: ASPIRIN EC 81 MG TABEC PO SCH (08:30)
[2016-11-02] MEDS: CARVEDILOL 3.125 MG TAB PO SCH ×2 (08:30→22:23)
[2016-11-02] MEDS: BUMETANIDE INJ 1 MG/4 ML VIAL IV PUSH SCH ×2 (08:30→17:26)
[2016-11-02] MEDS: ENOXAPARIN SODIUM 60 MG/0.6 ML SYRINGE SQ SCH (10:19)
[2016-11-02] MEDS ORDERED: METR-1 PO (15:45)
[2016-11-02] MEDS ORDERED: BUME1TAB26 PO ×2 (15:45→15:48)
--- NOTE | 2016-11-02 15:45 | HHI.DCPOC ---
Discharge Care Plan Diagnosis: (1) Aortic stenosis (2) CHF due to valvular disease (3) Dyspnea on exertion (4) Pleural effusion (5) mild colitis Goals to Promote Your Health * To prevent worsening of your condition and complications * To maintain your health at the optimal level Directions to Meet Your Goals Take your medications as prescribed Follow your dietary instruction Follow activity as directed Keep your appointments as scheduled Take your immunizations and boosters as scheduled If your symptoms worsen call your PCP, if no PCP go to Urgent Care Center or Emergency Room Smoking is Dangerous to Your Health. Avoid second hand smoke Call the 24-hour hour crisis hotline for domestic abuse at Paloma Garcia PA-C Nov 02, 2016 15:45 Allie Srinivasan MD Nov 04, 2016 17:43
--- NOTE | 2016-11-02 15:58 | HHI.DS ---
cc: Jodi Coleman MD Discharge Summary Admission Date Oct 30, 2016 at 19:52 Discharge Date: Nov 05, 2016 Admitting Diagnosis CHF/Aortic Stenosis (1) Dyspnea on exertion ICD Code: R06.09 Diagnosis: Principal (2) CHF due to valvular disease ICD Code: I50.9 Diagnosis: Principal (3) Pleural effusion ICD Code: J90 Diagnosis: Secondary (4) Aortic stenosis ICD Code: I35.0 Diagnosis: Principal (5) mild colitis Diagnosis: Secondary Procedures None. Brief History - From Admission History from patient, and your physician communication. Patient reported that she came to the hospital because she was short of breath in the past1 week. was also having weakness, decreased appetite, no leg swelling no cough no fever no chest pain she states that she was at [facility] for 2 weeks' duration. She was discharged on September 14, 2016. She states that she was managed for chf, bilateral pleural effusions was not on bipap, not intubated had thoracocentesis done last week of aug also had cardiac cath with Dr Dunlap on Aug 29 reports bumex does not work for her- but lasix did- though she developed a rash with lasix- they were unsure whether it was really lasix or cardizem also reports of diarrhea since hospital discharge was started on flagyl because of this by pcp- now diarrhea improved- cdiff was negative as outpatient also have associated abdominal pain diarrhea has mucus CBC/BMP: 11/02/16 0504 11/02/16 0504 Significant Findings Laboratory Tests Test 10/30/16 10/31/16 10/31/16 11/01/16 17:11 00:04 05:54 10:37 Prothrombin Time 12.4 SEC (9.8-11.6) Blood Urea Nitrogen 22 MG/DL (7-18) 23 MG/DL (7-18) 25 MG/DL (7-18) Creatinine 1.47 MG/DL 1.50 MG/DL 1.50 MG/DL (0.50-1.00) (0.50-1.00) (0.50-1.00) Estimat Glomerular Filtration 34 ML/MIN (>89) 34 ML/MIN (>89) 34 ML/MIN (>89) Rate Random Glucose 120 MG/DL 114 MG/DL 157 MG/DL (74-106) (74-106) (74-106) Aspartate Amino Transf 51 U/L (15-37) (AST/SGOT) Troponin I 0.14 NG/ML 0.13 NG/ML 0.14 NG/ML (0.02-0.05) (0.02-0.05) (0.02-0.05) B-Type Natriuretic Peptide 2330 PG/ML 2085 PG/ML (0-100) (0-100) Red Cell Distribution Width 17.5 % 17.6 % 17.8 % (11.6-17.2) (11.6-17.2) (11.6-17.2) Neutrophils (%) (Auto) 71.3 % 78.7 % (16.0-70.0) (16.0-70.0) Eosinophils (%) (Auto) 4.1 % (0.0-4.0) 4.4 % (0.0-4.0) White Blood Count 11.1 TH/MM3 11.9 TH/MM3 (4.0-11.0) (4.0-11.0) Hemoglobin 10.9 GM/DL 11.1 GM/DL (11.6-15.3) (11.6-15.3) Hematocrit 33.8 % 34.2 % (35.0-46.0) (35.0-46.0) Mean Corpuscular Hemoglobin 26.5 PG 26.9 PG (27.0-34.0) (27.0-34.0) Monocytes (%) (Auto) 8.1 % (0.0-8.0) Neutrophils # (Auto) 9.4 TH/MM3 (1.8-7.7) Eosinophils # (Auto) 0.5 TH/MM3 (0-0.4) Potassium Level 3.1 MEQ/L (3.5-5.1) Test 11/01/16 11/02/16 19:04 05:04 Urine Turbidity HAZY (CLEAR) Urine Leukocyte Esterase LARGE (NEG) Urine RBC 5 /hpf (0-3) Urine WBC 32 /hpf (0-5) Urine Bacteria MOD /hpf (NONE) Urine Mucus FEW /lpf (OCC) White Blood Count 11.3 TH/MM3 (4.0-11.0) Red Blood Count 3.94 MIL/MM3 (4.00-5.30) Hemoglobin 10.8 GM/DL (11.6-15.3) Hematocrit 32.8 % (35.0-46.0) Red Cell Distribution Width 17.6 % (11.6-17.2) Neutrophils (%) (Auto) 70.3 % (16.0-70.0) Monocytes (%) (Auto) 9.4 % (0.0-8.0) Eosinophils (%) (Auto) 6.7 % (0.0-4.0) Neutrophils # (Auto) 7.9 TH/MM3 (1.8-7.7) Monocytes # (Auto) 1.1 TH/MM3 (0-0.9) Eosinophils # (Auto) 0.8 TH/MM3 (0-0.4) Blood Urea Nitrogen 24 MG/DL (7-18) Creatinine 1.43 MG/DL (0.50-1.00) Estimat Glomerular Filtration 36 ML/MIN (>89) Rate Random Glucose 136 MG/DL (74-106) B-Type Natriuretic Peptide 1670 PG/ML (0-100) Imaging Last Impressions Chest X-Ray 10/30/161641 Signed Impressions: Service Date/Time: October 16:42 - CONCLUSION: 1. Small bilateral pleural effusions and concomitant left basilar atelectatic changes. 2. Apparent partial left mastectomy with left axillary emilia dissection. Odell Redman MD Abdomen/Pelvis CT 10/30/161641 Signed Impressions: Service Date/Time: October 18:49 - CONCLUSION: 1. Mild mural thickening of the left colon characteristic of a mild colitis. No obstruction, free fluid or free air. 2. Moderate bilateral pleural effusions with basilar atelectasis. Jalil Bernstein MD PE at Discharge GENERAL: Well-developed, well-nourished pleasant elderly female patient in [facility]. SKIN: Warm and dry. HEENT: Atraumatic. Normocephalic. Pupils equal and round. No scleral icterus. No injection or drainage. Mucous membranes pink and moist. NECK: Trachea midline. CARDIOVASCULAR: Regular rate and rhythm. 3/6 systolic ejection murmur. RESPIRATORY: No accessory muscle use. Clear to auscultation. Breath sounds equal bilaterally. GASTROINTESTINAL: Abdomen soft, non-tender, nondistended. Normoactive bowel sounds x4. MUSCULOSKELETAL: Extremities without clubbing, cyanosis, or edema. No obvious deformities. NEUROLOGICAL: Awake and alert. No obvious cranial nerve deficits. Motor grossly within normal limits. Normal speech. PSYCHIATRIC: Appropriate mood and affect; insight and judgment normal. Hospital Course 76-year-old female with history of hypertension, CHF, aortic stenosis, atrial fibrillation, COPD, presents with increasing shortness of breath 2 weeks, and ongoing diarrhea CHF Exacerbation secondary to Valvular Cardiomyopathy: SOB/BOWMAN x2 weeks. CXR images reviewed by me, shows small b/l pleural effusion and concomitant left basilar atelectasis. CT abd/pelvis showed moderate bilateral pleural effusion with basilar atelectasis. BNP 2330 --> 2085 --> 1670. Continue on IV Bumex 1mg bid. Monitor Is&Os. O2 as needed (patient not on O2 at home, may require at discharge). Continue patient's aspirin, Coreg. Pleural effusions: Seen on CT. Patient with left-sided thoracentesis in Aug 2016 at [facility]. If no improvement on IV Bumex, consider repeat thoracentesis. Severe Aortic Stenosis: Consulted cardiothoracic surgeon Dr. Coleman, recommends TAVR if no significant CAD. Obtained records from of Cardiac Catheterization 08/29/[address] Dunlap showed mild occlusive disease noted in the LAD; no further intervention indicated; at least moderate aortic stenosis, peak- to-peak pressure gradient in 30-55mmHg. Dr. Coleman has ordered transfer to [facility] for TAVR. Acute Colitis: CT abd/pelvis shows mild colitis of Left colon. Patient reports Cdiff negative when checked by PCP. Continue Flagyl 500mg q6h. Diet as tolerated. Patient declines any pain medication. Abnormal UA: UA with large leuks, 32 WBCs, mod bacteria. The patient adamantly does not want to start abx at this time as she has no urinary symptoms and has never had a UTI, she would only agree if culture is positive. Final Urine culture with mixed mac. Will not give antibiotics. Atrial fibrillation: Chronic. Started full strength Lovenox. 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 COPD: Chronic, stable, does not appear to be in exacerbation. DuoNeb as needed. DVT prophylaxis: Lovenox Written by Paloma Garcia, acting as scribe for Dr. Srinivasan on 11/03/16 at 10:35 All or portions of this note were transcribed by [email or web address] SCALES . I , Dr. Allie Srinivasan personally performed the history, physical exam, and medical decision making; and confirmed the accuracy of the information in the transcribed note. Authenticated by Dr. Allie Srinivasan on 11/03/16 at 10:35 Patient was transferred to [facility] in stable condition for TAVR on 11/05/16 Pt Condition on Discharge: Stable Discharge Disposition: Trnsfr to Other Facility Discharge Time: > 30 minutes Discharge Instructions DIET: Follow Instructions for: Heart Healthy Diet Activities you can perform: Regular-No Restrictions New Medications: Metronidazole (Flagyl) 500 Mg Tab 500 MG PO Q6HR mild colitis Days 10 TAB Changed Medications: Bumetanide (Bumex) 1 Mg Tab 1 MG PO BID CHF #30 Ref 0 TAB (Changed from: DAILY) Continued Medications: Aspirin (Aspirin EC) 81 Mg Tabdr 81 MG PO DAILY Ref 0 TAB Carvedilol (Coreg) 3.125 Mg Tab 3.125 MG PO BID #60 Ref 0 TAB Paloma Garcia PA-C Nov 02, 2016 15:58 Allie Srinivasan MD Nov 04, 2016 09:22
[2016-11-03] MEDS: metroNIDAZOLE 500 MG TAB PO SCH ×4 (00:08→18:23)
[2016-11-03 04:02] VITALS: BP 126/63; PULSE 85; RESP 18; TEMP 98.7; O2SAT 97
--- NOTE | 2016-11-03 07:24 | HHI.PR ---
Subjective Remarks Follow up for mild colitis, CHF exacerbation, severe aortic stenosis. The patient would like to speak to Dr. Coleman further about her aortic stenosis prior to agreeing to transfer to [facility]. She has a lot of questions regarding the surgery and her options. Otherwise, her breathing is minimally improved, still dyspneic on exertion. No cough or chest pain. No fevers/chills. Diarrhea resolved. No abdominal pain, nausea/vomiting. Objective Vitals Vital Signs Date Time Temp Pulse Resp B/P Pulse Ox O2 Delivery O2 Flow Rate FiO2 11/03/16 04:02 98.7 85 18 126/63 97 11/02/16 23:31 98.4 80 16 91/66 94 11/02/16 21:39 98.0 90 18 129/73 98 11/02/16 20:00 92 11/02/16 16:08 98.0 98 17 130/60 99 11/02/16 12:06 95.4 71 16 115/57 96 11/02/16 08:00 103 11/02/16 07:41 97.0 95 16 106/48 95 I/O 11/02/16 11/02/16 11/02/16 11/03/16 11/03/16 11/03/16 06:59 14:59 22:59 06:59 14:59 22:59 Intake Total 240 ml 480 ml 240 ml Balance 240 ml 480 ml 240 ml Intake Oral 240 ml 480 ml 240 ml # Voids 1 1 1 Result Diagram: 11/02/16 0504 11/02/16 0504 Imaging Last Impressions Chest X-Ray 10/30/16 164 Signed Impressions: Service Date/Time: October 16:42 - CONCLUSION: 1. Small bilateral pleural effusions and concomitant left basilar atelectatic changes. 2. Apparent partial left mastectomy with left axillary emilia dissection. Odell Redman MD Abdomen/Pelvis CT 10/30/16 1642 Signed Impressions: Service Date/Time: October 18:49 - CONCLUSION: 1. Mild mural thickening of the left colon characteristic of a mild colitis. No obstruction, free fluid or free air. 2. Moderate bilateral pleural effusions with basilar atelectasis. Jalil Bernstein MD Objective Remarks GENERAL: Well-developed, well-nourished pleasant elderly female patient in [facility]. SKIN: Warm and dry. HEENT: Atraumatic. Normocephalic. Pupils equal and round. No scleral icterus. No injection or drainage. Mucous membranes pink and moist. NECK: Trachea midline. CARDIOVASCULAR: Regular rate and rhythm. 3/6 systolic ejection murmur. RESPIRATORY: No accessory muscle use. Clear to auscultation. Breath sounds equal bilaterally. GASTROINTESTINAL: Abdomen soft, non-tender, nondistended. Normoactive bowel sounds x4. MUSCULOSKELETAL: Extremities without clubbing, cyanosis, or edema. No obvious deformities. NEUROLOGICAL: Awake and alert. No obvious cranial nerve deficits. Motor grossly within normal limits. Normal speech. PSYCHIATRIC: Appropriate mood and affect; insight and judgment normal. Procedures None. Medications and IVs Current Medications Medications (Trade) Dose Ordered Sig/Kaden Route Start Time Stop Time Status Last Admin (NS Flush) 2 ml UNSCH PRN IV FLUSH 10/30/16 20:00 10/31/16 18:04 (NS Flush) 2 ml BID IV FLUSH 10/30/16 21:00 11/02/16 22:00 (Narcan Inj) 0.4 mg UNSCH PRN IV 10/30/16 20:00 (Ecotrin Ec) 81 mg DAILY PO 10/31/16 09:00 11/02/16 08:30 (Coreg) 3.125 mg BID PO 10/30/16 21:00 11/02/16 22:23 (Bumex Inj) 1 mg BID@09,18 IV PUSH 10/31/16 09:00 11/02/16 17:26 (Lovenox Inj) 50 mg Q24H SQ 10/31/16 10:00 11/02/16 10:19 (Flagyl) 500 mg Q6HR PO 10/31/16 12:00 11/03/16 05:32 A/P Problem List: (1) Dyspnea on exertion ICD Code: R06.09 Status: Acute (2) CHF due to valvular disease ICD Code: I50.9 Status: Acute (3) Pleural effusion ICD Code: J90 Status: Acute (4) Aortic stenosis ICD Code: I35.0 Status: Acute (5) mild colitis Status: Acute Assessment and Plan 76-year-old female with history of hypertension, CHF, aortic stenosis, atrial fibrillation, COPD, presents with increasing shortness of breath 2 weeks, and ongoing diarrhea CHF Exacerbation secondary to Valvular Cardiomyopathy: SOB/BOWMAN x2 weeks. CXR images reviewed by me, shows small b/l pleural effusion and concomitant left basilar atelectasis. CT abd/pelvis showed moderate bilateral pleural effusion with basilar atelectasis. BNP 2330 --> 2085 --> 1670. Continue on IV Bumex 1mg bid. Monitor Is&Os. O2 as needed (patient not on O2 at home, may require at discharge). Continue patient's aspirin, Coreg. Pleural effusions: Seen on CT. Patient with left-sided thoracentesis in Aug [address] [facility]. If no improvement on IV Bumex, consider repeat thoracentesis. Severe Aortic Stenosis: Consulted cardiothoracic surgeon Dr. Coleman, recommends TAVR if no significant CAD. Obtained records from of Cardiac Catheterization 08/29/[address] Dunlap showed mild occlusive disease noted in the LAD; no further intervention indicated; at least moderate aortic stenosis, peak- to-peak pressure gradient in 30-55mmHg. Dr. Coleman has ordered transfer to [facility] for TAVR. Acute Colitis: CT abd/pelvis shows mild colitis of Left colon. Patient reports Cdiff negative when checked by PCP. Continue Flagyl 500mg q6h. Diet as tolerated. Patient declines any pain medication. Abnormal UA: UA with large leuks, 32 WBCs, mod bacteria. The patient adamantly does not want to start abx at this time as she has no urinary symptoms and has never had a UTI, she would only agree if culture is positive. Final Urine culture with mixed mac. Will not give antibiotics. Atrial fibrillation: Chronic. Started full strength Lovenox. 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 COPD: Chronic, stable, does not appear to be in exacerbation. DuoNeb as needed. DVT prophylaxis: Lovenox Written by Paloma Garcia, acting as scribe for Dr. Srinivasan on 11/03/16 at 10:35 All or portions of this note were transcribed by [email or web address] SCALES. I, Dr. Allie Srinivasan personally performed the history, physical exam, and medical decision making; and confirmed the accuracy of the information in the transcribed note. Authenticated by Dr. Allie Srinivasan on 11/03/16 at 10:35 Discharge Planning Likely transfer to [facility] if patient agrees. See discharge summary. Patient met inpatient criteria since admission on 10/30/16. Problem Qualifiers (1) Aortic stenosis: Qualified Code: I35.0 - Aortic valve stenosis, unspecified etiology Paloma Garcia PA-C Nov 03, 2016 07:24 Allie Srinivasan MD Nov 03, 2016 14:47
[2016-11-03 07:34] VITALS: BP 105/54; PULSE 77; RESP 18; TEMP 97.9; O2SAT 96
[2016-11-03] MEDS: ENOXAPARIN SODIUM 60 MG/0.6 ML SYRINGE SQ SCH (09:26)
[2016-11-03] MEDS: BUMETANIDE INJ 1 MG/4 ML VIAL IV PUSH SCH ×2 (09:26→18:23)
[2016-11-03] MEDS: ASPIRIN EC 81 MG TABEC PO SCH (09:29)
[2016-11-03] MEDS: CARVEDILOL 3.125 MG TAB PO SCH ×2 (09:29→22:24)
[2016-11-03] MEDS: SODIUM CHLORIDE 0.9% FLUSH 10 ML FLUSH IV FLUSH SCH ×2 (09:30→21:00)
[2016-11-03 11:15] VITALS: BP 75/43; PULSE 86; RESP 18; TEMP 98.2; O2SAT 96
[2016-11-03 15:40] VITALS: BP 98/57; PULSE 78; RESP 17; TEMP 98.6; O2SAT 95
[2016-11-03 19:17] VITALS: BP 121/56; PULSE 103; RESP 18; TEMP 98; O2SAT 98
[2016-11-03 20:15] VITALS: PULSE 85
[2016-11-04] VITALS (7 sets, daily range): BP systolic 114–139; BP diastolic 55–65; PULSE 75–115; RESP 17–20; TEMP 97.3–98.7; O2SAT 95–98
[2016-11-04] MEDS: metroNIDAZOLE 500 MG TAB PO SCH ×5 (01:16→22:46)
[2016-11-04] MEDS: ENOXAPARIN SODIUM 60 MG/0.6 ML SYRINGE SQ SCH (10:48)
[2016-11-04] MEDS: ASPIRIN EC 81 MG TABEC PO SCH (10:48)
[2016-11-04] MEDS: BUMETANIDE INJ 1 MG/4 ML VIAL IV PUSH SCH ×2 (10:48→17:50)
[2016-11-04] MEDS: SODIUM CHLORIDE 0.9% FLUSH 10 ML FLUSH IV FLUSH SCH ×2 (10:49→21:00)
[2016-11-04] MEDS: CARVEDILOL 3.125 MG TAB PO SCH ×2 (10:49→22:45)
--- NOTE | 2016-11-04 14:14 | EC ---
Study Study Date:11/03/2016 STUDY CONCLUSIONS SUMMARY - Left ventricle: The cavity size was normal. Wall thickness was increased in a pattern of mild LVH. Systolic function was severely reduced. The estimated ejection fraction was in the range of 25% to 30%. Diffuse hypokinesis. Features are consistent with a pseudonormal left ventricular filling pattern, with concomitant abnormal relaxation and increased filling pressure (grade 2 diastolic dysfunction). - Aortic valve: There was severe stenosis. Moderate regurgitation. Valve area: 0.38cm^2(VTI). Valve area: 0.44cm^2 (Vmax). - Mitral valve: Moderate to severe regurgitation, with multiple jets. - Left atrium: The atrium was mildly dilated. - Pulmonic valve: Mild regurgitation. - Pulmonary arteries: PA peak pressure: 59mm Hg (S). - Pericardium, extracardiac: There was a left pleural effusion. If LV function is below 40, please consider prescribing an ACEI or ARB or document rationale for non-use. PROCEDURE DATA STUDY STATUS: Elective. Procedure: Transthoracic echocardiography. Image quality was good. Scanning was performed from the parasternal, apical, and subcostal acoustic windows. Study completion: The patient tolerated the procedure well. Transthoracic echocardiography. M-mode, complete 2D, complete spectral Doppler, and color Doppler. Patient status: Inpatient. CARDIAC ANATOMY LEFT VENTRICLE: The cavity size was normal. Wall thickness was increased in a pattern of mild LVH. Systolic function was severely reduced. The estimated ejection fraction was in the range of 25% to 30%. Diffuse hypokinesis. Features are consistent with a pseudonormal left ventricular filling pattern, with concomitant abnormal relaxation and increased filling pressure (grade 2 diastolic dysfunction). AORTIC VALVE: Severely calcified leaflets. Doppler: There was severe stenosis. Moderate regurgitation. Valve area: 0.38cm^2(VTI). Valve area: 0.44cm^2 (Vmax). Mean gradient: 33mm Hg (S). Peak gradient: 57mm Hg (S). MITRAL VALVE: Mildly thickened leaflets, . Doppler: There was no evidence for stenosis. Moderate to severe regurgitation, with multiple jets. Peak gradient: 3mm Hg (D). LEFT ATRIUM: The atrium was mildly dilated. PULMONIC VALVE: Not well visualized. Doppler: There was no evidence for stenosis. Mild regurgitation. TRICUSPID VALVE: The valve appears to be grossly normal. Doppler: There was no evidence for stenosis. Trace regurgitation. PERICARDIUM: There was no pericardial effusion. Pleura: There was a left pleural effusion. BASIC MEASUREMENTS ADULT Normal Left ventricle LV internal dimension, ED, chordal level, 45.8 mm 43-52 PLAX LV internal dimension, ES, chordal level, *41.2 mm 23-38 PLAX Fractional shortening, chordal level, PLAX *10 % >29 LV posterior wall thickness, ED 11.7 mm IVS/LVPW ratio, ED 0.79 <1.3 Ventricular septum Septal thickness, ED 9.25 mm Aortic valve Leaflet separation *9 mm 15-26 Right ventricle RV internal dimension, ED, PLAX 26.1 mm 19-38 BASIC MEASUREMENTS ADULT Normal Aortic valve Leaflet separation *9 mm 15-26 Aorta Root diameter, ED 29 mm 20-37 Left atrium Anterior-posterior dimension, ES 38 mm 19-40 LA/aortic root ratio 1.31 DOPPLER MEASUREMENTS ADULT Normal Main pulmonary artery Pressure, S *59 mm Hg =30 Aortic valve Peak velocity, S 377 cm/s Mean velocity, S 268 cm/s VTI, S 81.7 cm Mean gradient, S 33 mm Hg Peak gradient, S 57 mm Hg Valve area, VTI 0.38 cm^2 Valve area, Vmax 0.44 cm^2 Regurgitant velocity, ED 415 cm/s Regurgitant deceleration 3180 cm/s^2 Regurgitant pressure half-time 382 ms Regurgitant gradient, ED 69 mm Hg Mitral valve Peak E-wave velocity 90.8 cm/s Peak A-wave velocity 45.4 cm/s Peak gradient, D 3 mm Hg Peak E/A ratio 2 Tricuspid valve Regurgitant peak velocity 350 cm/s Peak RV-RA gradient, S 49 mm Hg Systemic veins Estimated CVP 10 mm Hg Right ventricle RV pressure, S *59 mm Hg <30 LEGEND: Mean values are shown as u=mean value. Asterisk (*) gomez values outside specified normal range. Prepared and signed by Shaka Cazares [id number]
--- NOTE | 2016-11-04 14:58 | HHI.PR ---
Subjective Remarks Follow-up for aortic stenosis. The patient denies any chest pain. She continues to complain of shortness of breath, worse with exertion. Denies any cough. Occasionally she feels lightheaded. She does complain of nausea with Flagyl. She denies any further diarrhea. Objective Vitals Vital Signs Date Time Temp Pulse Resp B/P Pulse Ox O2 Delivery O2 Flow Rate FiO2 11/04/16 11:23 98.4 88 17 125/57 97 11/04/16 08:53 97.3 115 19 136/65 96 11/04/16 03:29 98.7 84 18 114/56 95 11/04/16 01:18 98.4 87 18 139/62 98 11/04/16 00:35 98 11/03/16 20:15 85 11/03/16 19:17 98.0 103 18 121/56 98 11/03/16 15:40 98.6 78 17 98/57 95 I/O 11/03/16 11/03/16 11/03/16 11/04/16 11/04/16 11/04/16 07:00 15:00 23:00 07:00 15:00 23:00 Intake Total 240 ml 350 ml Balance 240 ml 350 ml Intake Oral 240 ml 350 ml # Voids 1 2 # Bowel Movements 1 Result Diagram: 11/02/16 0504 11/02/16 0504 Imaging Last Impressions Chest X-Ray 10/30/161641 Signed Impressions: Service Date/Time: October 16:42 - CONCLUSION: 1. Small bilateral pleural effusions and concomitant left basilar atelectatic changes. 2. Apparent partial left mastectomy with left axillary emilia dissection. Odell Redman MD Abdomen/Pelvis CT 10/30/161641 Signed Impressions: Service Date/Time: October 18:49 - CONCLUSION: 1. Mild mural thickening of the left colon characteristic of a mild colitis. No obstruction, free fluid or free air. 2. Moderate bilateral pleural effusions with basilar atelectasis. Jalil Bernstein MD Objective Remarks GENERAL: Well-developed well-nourished. In no acute distress. SKIN: Warm and dry. No lesions noted. HEENT: Normocephalic. Pupils equal and round. Mucous membranes pink and moist. CARDIOVASCULAR: Regular rate and rhythm. Systolic murmur appreciated. RESPIRATORY: No accessory muscle use. Clear to auscultation. Decreased breath sounds right base. GASTROINTESTINAL: Abdomen soft, non-tender, nondistended. Bowel sounds x4. MUSCULOSKELETAL: No obvious deformities. No clubbing or cyanosis. No edema. NEUROLOGICAL: Awake and alert. No focal neurological deficits. Moves upper and lower extremities spontaneously. Normal speech. PSYCHIATRIC: Appropriate mood and affect; insight and judgment normal. Procedures None. A/P Problem List: (1) Dyspnea on exertion ICD Code: R06.09 Status: Acute (2) CHF due to valvular disease ICD Code: I50.9 Status: Acute (3) Pleural effusion ICD Code: J90 Status: Acute (4) Aortic stenosis ICD Code: I35.0 Status: Acute (5) mild colitis Status: Acute Assessment and Plan 76-year-old female with history of hypertension, CHF, aortic stenosis, atrial fibrillation, COPD, presents with increasing shortness of breath 2 weeks, and ongoing diarrhea CHF Exacerbation secondary to Valvular Cardiomyopathy: SOB/BOWMAN x2 weeks. CXR images reviewed by me, shows small b/l pleural effusion and concomitant left basilar atelectasis. CT abd/pelvis showed moderate bilateral pleural effusion with basilar atelectasis. BNP 2330 --> 2085 --> 1670. Continue on IV Bumex 1mg bid for now. Monitor Is&Os. O2 as needed (patient not on O2 at home, may require at discharge). Continue patient's aspirin, Coreg. Pleural effusions: Seen on CT. Patient with left-sided thoracentesis in Aug 2016 at [facility]. If no improvement on IV Bumex, consider repeat thoracentesis. Severe Aortic Stenosis: Consulted cardiothoracic surgeon Dr. Coleman, recommends TAVR if no significant CAD. Obtained records from of Cardiac Catheterization 08/29/[address] Dunlap showed mild occlusive disease noted in the LAD; no further intervention indicated; at least moderate aortic stenosis, peak- to-peak pressure gradient in 30-55mmHg. Dr. Coleman has ordered transfer to [facility] for TAVR. Acute Colitis: CT abd/pelvis shows mild colitis of Left colon. Patient reports Cdiff negative when checked by PCP. Continue Flagyl 500mg q6h. Diet as tolerated. Patient declines any pain medication. Abnormal UA: Monitored off antibiotics. Final Urine culture with mixed mac. No need for treatment. Atrial fibrillation: Chronic. Started full strength Lovenox. Recommended OAC however patient wanted to discuss with her PCP and blood collector after discharge. COPD: Chronic, stable, does not appear to be in exacerbation. DuoNeb as needed. DVT prophylaxis: Lovenox Discussed with the patient, nurse, family (son at bedside), case management Written by Garrett Sanchez, acting as scribe for Dr. Srinivasan on 11/04/16 at 14:58. All or portions of this note were transcribed by scribAshish SCALES. I, Dr. Allie Srinivasan personally performed the history, physical exam, and medical decision making; and confirmed the accuracy of the information in the transcribed note. Authenticated by Dr. Allie Srinivasan on 11/04/16 at 14:58. Discharge Planning Transfer to [facility] when arranged. Discussed with case management, patient, patient's son. Problem Qualifiers (1) Aortic stenosis: Qualified Code: I35.0 - Aortic valve stenosis, unspecified etiology Garrett Sanchez Nov 04, 2016 14:58 Allie Srinivasan MD Nov 04, 2016 16:12
[2016-11-05 00:08] VITALS: BP 113/60; PULSE 96; RESP 20; TEMP 98.1; O2SAT 97
[2016-11-05 04:21] VITALS: BP 117/61; PULSE 79; RESP 20; TEMP 97.9
[2016-11-05] MEDS: metroNIDAZOLE 500 MG TAB PO SCH ×3 (06:01→18:00)
[2016-11-05 08:58] VITALS: BP 124/71; PULSE 84; RESP 17; TEMP 98.2; O2SAT 92
[2016-11-05] MEDS: SODIUM CHLORIDE 0.9% FLUSH 10 ML FLUSH IV FLUSH SCH (09:00)
[2016-11-05] MEDS: ASPIRIN EC 81 MG TABEC PO SCH (09:25)
[2016-11-05] MEDS: CARVEDILOL 3.125 MG TAB PO SCH (09:25)
[2016-11-05] MEDS: BUMETANIDE INJ 1 MG/4 ML VIAL IV PUSH SCH (09:26)
[2016-11-05] MEDS: ENOXAPARIN SODIUM 60 MG/0.6 ML SYRINGE SQ SCH (09:27)
--- NOTE | 2016-11-05 11:10 | HHI.PR ---
Subjective Remarks Follow-up for aortic stenosis. The patient didn't complain of shortness of breath, no change. She denies any chest pain. She continues to have some nausea with medications. She doesn't report much diuresis with Bumex. Discussed the case management, still awaiting transfer to [facility]. Objective Vitals Vital Signs Date Time Temp Pulse Resp B/P Pulse Ox O2 Delivery O2 Flow Rate FiO2 11/05/16 08:58 98.2 84 17 124/71 92 11/05/16 04:21 97.9 79 20 117/61 11/05/16 00:08 98.1 96 20 113/60 97 11/04/16 19:30 97.9 75 20 123/58 95 11/04/16 16:33 98.2 83 18 121/55 96 11/04/16 11:23 98.4 88 17 125/57 97 I/O 11/04/16 11/04/16 11/04/16 11/05/16 11/05/16 11/05/16 07:00 15:00 23:00 07:00 15:00 23:00 Intake Total 350 ml Balance 350 ml Intake Oral 350 ml # Voids 2 2 # Bowel Movements 1 Result Diagram: 11/02/16 0504 11/02/16 0504 Objective Remarks GENERAL: Well-developed well-nourished. In no acute distress. SKIN: Warm and dry. No lesions noted. HEENT: Normocephalic. Pupils equal and round. Mucous membranes pink and moist. CARDIOVASCULAR: Regular rate and rhythm. Holosystolic murmur appreciated. RESPIRATORY: No accessory muscle use. Clear to auscultation. Decreased breath sounds right base. GASTROINTESTINAL: Abdomen soft, non-tender, nondistended. Bowel sounds x4. MUSCULOSKELETAL: No obvious deformities. No clubbing or cyanosis. No edema. NEUROLOGICAL: Awake and alert. No focal neurological deficits. Moves upper and lower extremities spontaneously. Normal speech. PSYCHIATRIC: Appropriate mood and affect; insight and judgment normal. Procedures None. A/P Problem List: (1) Dyspnea on exertion ICD Code: R06.09 Status: Acute (2) CHF due to valvular disease ICD Code: I50.9 Status: Acute (3) Pleural effusion ICD Code: J90 Status: Acute (4) Aortic stenosis ICD Code: I35.0 Status: Acute (5) mild colitis Status: Acute Assessment and Plan 76-year-old female with history of hypertension, CHF, aortic stenosis, atrial fibrillation, COPD, presents with increasing shortness of breath 2 weeks, and ongoing diarrhea CHF Exacerbation secondary to Valvular Cardiomyopathy: SOB/BOWMAN x2 weeks. CXR images reviewed by me, shows small b/l pleural effusion and concomitant left basilar atelectasis. CT abd/pelvis showed moderate bilateral pleural effusion with basilar atelectasis. BNP 2330 --> 2085 --> 1670. Change IV Bumex 1mg bid to oral. Monitor Is&Os. O2 as needed (patient not on O2 at home, may require at discharge). Continue patient's aspirin, Coreg. Pleural effusions: Seen on CT. Patient with left-sided thoracentesis in Aug 2016 at [facility]. If no improvement on Bumex, consider repeat thoracentesis. Severe Aortic Stenosis: Consulted cardiothoracic surgeon Dr. Coleman, recommends TAVR if no significant CAD. Obtained records from of Cardiac Catheterization 08/29/[address] Dunlap showed mild occlusive disease noted in the LAD; no further intervention indicated; at least moderate aortic stenosis, peak- to-peak pressure gradient in 30-55mmHg. Dr. Coleman has ordered transfer to [facility] for TAVR. Acute Colitis: CT abd/pelvis shows mild colitis of Left colon. Patient reports Cdiff negative when checked by PCP. Continue Flagyl 500mg q6h. Diet as tolerated. Abnormal UA: Monitored off antibiotics. Final Urine culture with mixed mac. No need for treatment. Atrial fibrillation: Chronic. Started full strength Lovenox. Recommended OAC however patient wanted to discuss with her PCP and swimming pool salesperson after discharge. COPD: Chronic, stable, does not appear to be in exacerbation. DuoNeb as needed. DVT prophylaxis: Lovenox Written by Garrett Sanchez, acting as scribe for Dr. Srinivasan on 11/05/16 at 11:10. All or portions of this note were transcribed by [email or web address] SCALES. I, Dr. Allie Srinivasan personally performed the history, physical exam, and medical decision making; and confirmed the accuracy of the information in the transcribed note. Authenticated by Dr. Allie Srinivasan on 11/05/16 at 11:10. Discharge Planning Transfer to [facility] when arranged. Discussed with case management, patient. Problem Qualifiers (1) Aortic stenosis: Qualified Code: I35.0 - Aortic valve stenosis, unspecified etiology Garrett Sanchez Nov 05, 2016 11:10 Allie Srinivasan MD Nov 05, 2016 15:29
[2016-11-05 11:50] VITALS: BP 118/56; PULSE 85; RESP 17; TEMP 97.9; O2SAT 93
[2016-11-05 16:12] VITALS: BP 120/72; PULSE 79; RESP 20; TEMP 98; O2SAT 94
[2016-11-05] MEDS ORDERED: ONDANSETRON HCL 4 MG/2 ML VIAL IV PUSH ONE (16:30)
[2016-11-05] MEDS ORDERED: ONDANSETRON HCL 4 MG/2 ML VIAL IV PUSH PRN (16:30)
[2016-11-05] MEDS ORDERED: BUMETANIDE 1 MG TAB PO SCH (18:00)
[2016-11-20] MEDS ORDERED: PLAV75TA29 PO (13:44)
[2016-11-20] MEDS ORDERED: ASPI81TA11 PO (13:44)
[2016-11-20] MEDS ORDERED: LACT PO (13:44)
[2016-11-20] MEDS ORDERED: CARV3.125 PO (13:44)
[2016-11-20] MEDS ORDERED: BUME1TAB PO (13:44)
== END 2016-11-05 19:23 | disposition short-term general hospital (02) | DRG 292 ==
LOC: NEPE 15:16 → NEDA 19:52 → NEPGCP 23:13 → HCIS 11-05 14:28
PROVIDERS: ADMIT Hospitalist; ATTEND Hospitalist
DX: I11.0 Hypertensive heart disease with heart failure (principal); Z68.1 Body mass index [BMI] 19.9 or less, adult; I42.9 Cardiomyopathy, unspecified; I48.2 Chronic atrial fibrillation; J44.9 Chronic obstructive pulmonary disease, unspecified; J98.11 Atelectasis; I35.0 Nonrheumatic aortic (valve) stenosis; I50.9 Heart failure, unspecified; K52.9 Noninfective gastroenteritis and colitis, unspecified; R00.2 Palpitations; R63.4 Abnormal weight loss; Z85.3 Personal history of malignant neoplasm of breast; Z87.891 Personal history of nicotine dependence
CPT/HCPCS: 71010; 74177; 80048; 80053; 81001; 82550; 82552; 83735; 83880; 84484; 85025; 85610; 85730; 87077; 87086; 87186; 87328; 87329; 87506; 93005; 93306; 96374; J1650; J2405; Q9963; Q9967

== ENCOUNTER 2017-05-06 19:32 | Inpatient (IN) | payer MEDICARE ==
[~2017-05-06] VITALS: Ht 160 cm; Wt 51.2 kg
[~2017-05-06 19:32] MED LIST changes: -BUME1TAB26 PO; -METR-1 PO
[2017-05-06 19:33] VITALS: BP 141/75; PULSE 110; RESP 16; TEMP 98.3; O2SAT 94
[2017-05-06] MEDS ORDERED: SODIUM CHLOR 0.9% 1000 ML INJ 1,000 ML IV SCH (20:22)
[2017-05-06] MEDS ORDERED: LEVOFLOXACIN 500 MG PREMIX INJ 100 ML IV ONE (20:30)
[2017-05-06] MEDS ORDERED: ONDANSETRON HCL 4 MG/2 ML VIAL IVP ONE (20:30)
[2017-05-06] MEDS ORDERED: metroNIDAZOLE 500 MG INJ 100 ML IV ONE (20:30)
[2017-05-06] MEDS ORDERED: SODIUM CHLORIDE 0.9% FLUSH 10 ML FLUSH IV FLUSH PRN ×2 (20:30→22:45)
[2017-05-06] MEDS ORDERED: MORPHINE SULFATE 4 MG/ML INJ IV PUSH ONE (20:30)
[2017-05-06] MEDS ORDERED: COUM1TAB PO (21:00)
[2017-05-06] MEDS ORDERED: COUM2TAB PO (21:00)
--- NOTE | 2017-05-06 21:50 | PD ---
HPI Chief Complaint: Abnormal Results Time Seen by Provider: 20:14 Travel History International Travel<30 days: No Contact w/Intl Traveler<30days: No Traveled to known affect area: No History of Present Illness HPI pcp dr hardy, who ordered outpt ct abd/pelvis, in which patient was found to have sigmoid diverticulitis with contained perforation (ct done at [facility]). patient was advised to come to [facility]. PATIENT STATES C/O ABDOMINAL PAIN, LOWER, PRESSURE LIKE WITH OCCASIONAL SHARP EPISODES, ONGOING FOR PAST 4 DAYS, SAW PCP TODAY AND HAD CT DONE OUTPT AROUND 4PM TODAY. DENIES N/V/FEVER PFSH Past Medical History Hx Anticoagulant Therapy: Yes (COUMADIN) Arthritis: Yes (With Age) Asthma: No Atrial Fibrillation: Yes Autoimmune Disease: No Blood Disorders: No Anxiety: No Depression: No Heart Rhythm Problems: Yes (A.Fib) Cancer: Yes (BREAST CANCER) Cardiovascular Problems: Yes High Cholesterol: No Chemotherapy: No Chest Pain: No Congestive Heart Failure: Yes COPD: Yes Cerebrovascular Accident: No Diabetes: No Diminished Hearing: Yes (ATKA) Endocrine: No GERD: No Genitourinary: No Hiatal Hernia: No Hypertension: Yes Immune Disorder: No Kidney Stones: No Musculoskeletal: No Neurologic: No Psychiatric: No Reproductive: No Respiratory: No Migraines: Yes (As a Teenager) Radiation Therapy: Yes (36 Treatments (1990)) Renal Failure: No Seizures: No Sickle Cell Disease: No Sleep Apnea: No Thyroid Disease: No Ulcer: No Past Surgical History Abdominal Surgery: No AICD: No Arteriovenous Shunt: No Cardiac Surgery: Yes (Cardiac Cath (Aug 26); TAVR) Ear Surgery: No Endocrine Surgery: No Eye Surgery: Yes (Left Retina Repair) Genitourinary Surgery: No Gynecologic Surgery: No Insulin Pump: No Joint Replacement: No Oral Surgery: No Pacemaker: No Thoracic Surgery: No Other Surgery: Yes (Left Lymphnode Dysection (1990)) Social History Alcohol Use: No Tobacco Use: No Substance Use: No Allergies-Medications (Allergen,Severity, Reaction): Coded Allergies: furosemide (Unverified Allergy, Unknown, 05/06/17) Reported Meds & Prescriptions Reported Meds & Active Scripts Active Coreg (Carvedilol) 3.125 Mg Tab 3.125 Mg PO BID Reported Coumadin (Warfarin) 1 Mg Tab 1 Mg PO JEFFREY Coumadin (Warfarin) 2 Mg Tab 2 Mg PO MWF Review of Systems Except as stated in HPI: all other systems reviewed are Neg Gastrointestinal: Positive: Nausea, Abdominal Pain Physical Exam Narrative GENERAL: SKIN: Warm and dry. HEAD: Atraumatic. Normocephalic. EYES: Pupils equal and round. No scleral icterus. No injection or drainage. ENT: No nasal bleeding or discharge. Mucous membranes pink and moist. NECK: Trachea midline. No JVD. CARDIOVASCULAR: Regular rate and rhythm. RESPIRATORY: No accessory muscle use. Clear to auscultation. Breath sounds equal bilaterally. GASTROINTESTINAL: Abdomen soft, MILD TO MOD TTP OVER LOWER ABD/SUPRAPUBIC REGION MUSCULOSKELETAL: Extremities without clubbing, cyanosis, or edema. No obvious deformities. NEUROLOGICAL: Awake and alert. No obvious cranial nerve deficits. Motor grossly within normal limits. Five out of 5 muscle strength in the arms and legs. Normal speech. PSYCHIATRIC: Appropriate mood and affect; insight and judgment normal. Data Data Last Documented VS Vital Signs Date Time Temp Pulse Resp B/P (MAP) Pulse Ox O2 Delivery O2 Flow Rate FiO2 05/06/17 19:33 98.3 110 16 141/75 (97) 94 Room Air Orders Orders Complete Blood Count With Diff (05/06/17 20:22) Comprehensive Metabolic Panel (05/06/17 20:22) Lipase (05/06/17 20:22) Prothrombin Time / Inr (Pt) (05/06/17 20:22) Act Partial Throm Time (Ptt) (05/06/17 20:22) Urinalysis - C+S If Indicated (05/06/17 20:22) Iv Access Insert/Monitor (05/06/17 20:22) Ecg Monitoring (05/06/17 20:22) Oximetry (05/06/17 20:22) NPO (05/06/17 20:22) Morphine Inj (Morphine Inj) (05/06/17 20:30) Ondansetron Inj (Zofran Inj) (05/06/17 20:30) Metronidazole 500 Mg Inj (Flagyl 500 Mg (05/06/17 20:30) Sodium Chlor 0.9% 1000 Ml Inj (Ns 1000 M (05/06/17 20:22) Levofloxacin 500 Mg Premix Inj (Levaquin (05/06/17 20:30) Sodium Chloride 0.9% Flush (Ns Flush) (05/06/17 20:30) Electrocardiogram (05/06/17 20:22) MDM Medical Decision Making Medical Screen Exam Complete: Yes Emergency Medical Condition: Yes Medical Record Reviewed: Yes Differential Diagnosis DIVERTIC V COMPLICATIONS LIKE PERFORATION V ABSCESS V CONSTIPATION V COLITIS Narrative Course ABLE TO REVIEW FILMS AND REPORT FROM [facility] IN WHICH INDEED CT SHOWED SIGMOID DIVERTICULITIS WITH SMALL CONTAINED PERFORATION. CALLED AND MADE GEN SURG DR HUERTAS AWARE, STATES THAT HE WILL COME AND SEE PATIENT BUT RECC ADMIT TO MEDICINE. Diagnosis Primary Impression: ACUTE SIGMOID DIVERTICULITIS WITH SMALL CONTAINED PERFORATION Admitting Information Admitting Physician Requests: Admit Phillip Rodarte MD May 06, 2017 21:50
[2017-05-06 22:30] LABS: AUTOMATED NEUTROPHIL # 16.2 TH/MM3 (1.8-7.7); BASOPHIL % 0.2 % (0.0-2.0); EOSINOPHIL % 0.3 % (0.0-4.0); HEMATOCRIT 39.8 % (35.0-46.0); HEMO FLAGS DIFF FINAL; LYMPH % 6.5 % (9.0-44.0); LYMPHOCYTE # 1.2 TH/MM3 (1.0-4.8); MEAN CELL VOLUME 80.8 FL (80.0-100.0); MEAN CORPUSCULAR HEMOGLOBIN 26.5 PG (27.0-34.0); MEAN CORPUSCULAR HGB CONC 32.8 % (32.0-36.0); MONO % 4.3 % (0.0-8.0); NEUT % 88.7 % (16.0-70.0); PLATELET COUNT 341 TH/MM3 (150-450); RED BLOOD COUNT 4.92 MIL/MM3 (4.00-5.30); RED CELL DISTRIBUTION WIDTH 15.5 % (11.6-17.2); WHITE BLOOD COUNT 18.2 TH/MM3 (4.0-11.0)
[2017-05-06 22:38] LABS: ANION GAP 12 MEQ/L (5-15); AST (GOT) 20 U/L (15-37); BICARBONATE 23.4 MEQ/L (21.0-32.0); BLOOD UREA NITROGEN 21 MG/DL (7-18); CHLORIDE 97 MEQ/L (98-107); GLOMERULAR FILTRATION RATE 53 ML/MIN (>89); POTASSIUM 3.6 MEQ/L (3.5-5.1); SODIUM (NA) 132 MEQ/L (136-145)
[2017-05-06 22:42] LABS: ALKALINE PHOSPHATASE 127 U/L (45-117); ALT (GPT) 21 U/L (10-53); TOTAL BILIRUBIN ADULT 1.7 MG/DL (0.2-1.0)
[2017-05-06 22:45] LABS: PROTHROMBIN TIME - PATIENT 23.3 SEC (9.8-11.6)
[2017-05-06] MEDS ORDERED: MORPHINE SULFATE 4 MG/ML INJ IV PUSH PRN (22:45)
[2017-05-06] MEDS ORDERED: PIPERACIL-TAZO 3.375 GM PREMIX 50 ML IV ONE (22:45)
[2017-05-06] MEDS ORDERED: ONDANSETRON HCL 4 MG/2 ML VIAL IVP PRN (22:45)
[2017-05-06] MEDS ORDERED: NALOXONE HCL 0.4 MG/ML AMP IV PUSH PRN (22:45)
--- NOTE | 2017-05-06 23:50 | HHI.HP ---
[facility] Janina Ahuja MD Admission Diagnosis SIGMOID DIVERTICULITIS WITH CONTAINED SMALL PERFORATION Diagnoses: Travel History International Travel<30 Days: No Contact w/Intl Traveler <30 Da: No Traveled to Known Affected Are: No History of Present Illness History from patient with his daughter at the bedside. Patient is known to me from her prior hospitalization in October 2016. She reports that she came to the hospital today because she was having diarrhea which started today. She was having diarrhea almost every 5 minutes. Denies any blood in it. I did see some mucus. Not green. But is foul smelling. Reports of low-grade fever around 100s. She reports that she was actually constipated a few days prior to this. Patient reports of history of chronic diarrhea previously prior to October as well. She has had multiple C. difficile studies done as outpatient and inpatient and this was negative. Back in October 2016, she was found to have severe systolic dysfunction with severe aortic stenosis for which she was referred to [place] for TAVR. She did have TAVR on November 11, 2016. She then came to our [facility] for inpatient rehabilitation. She was treated with ciprofloxacin at that time for pseudomonas UTI. She then continued to have diarrhea for which she was treated with Flagyl as an outpatient as well. However diarrhea eventually stopped after the discharge in late November until today. vomited once today after ct contrast but otherwise no vomiting had nausea had chronic slight dyspnea no syncope, no chest pain, no dizziness no urine burning or pain had ua sent at pcp office today but so far could not get clean sample here Review of Systems Except as stated in HPI: all other systems reviewed are Neg Past Family Social History Past Medical History htn chf afib- on coumadin COPD- not even on breathing treatment aortic valve stenosis- s/p TAVR in 11/24 at [place] hx of colitis confirmed by CT in 10/2016 hx of pseudomonas UTI left breast cancer- s/p mastectomy, lumpectomy, and radiation Past Surgical History left retinal torn left mastectomy lumpectomy tavr Allergies: Coded Allergies: furosemide (Unverified Allergy, Unknown, 05/06/17) Family History father- cad mother- cancer lung / complications from sx - dic sister- glioblastoma Social History quit around aug 2016 no drinking etoh, no drugs still driving, lives alone Physical Exam Vital Signs Vital Signs Date Time Temp Pulse Resp B/P (MAP) Pulse Ox O2 Delivery O2 Flow Rate FiO2 05/06/17 19:33 98.3 110 16 141/75 (97) 94 Room Air Physical Exam GENERAL: This is a well-nourished, well-developed patient, in no apparent distress. SKIN: No rashes, ecchymoses or lesions. Cool and dry. HEAD: Atraumatic. Normocephalic. No temporal or scalp tenderness. EYES: Pupils equal round and reactive. Extraocular motions intact. No scleral icterus. No injection or drainage. ENT: Nose without bleeding, purulent drainage or septal hematoma. Airway patent. NECK: Trachea midline. No JVD CARDIOVASCULAR: Regular rate and rhythm without murmurs, gallops, or rubs. RESPIRATORY: Clear to auscultation. Breath sounds equal bilaterally. No wheezes , rales, or rhonchi. GASTROINTESTINAL: Abdomen soft, non-tender, nondistended. No guarding. MUSCULOSKELETAL: Extremities without clubbing, cyanosis, or edema. No calf tenderness. NEUROLOGICAL: Awake and alert Motor and sensory grossly within normal limits.Normal speech. Laboratory Laboratory Tests Test 05/06/17 21:40 White Blood Count 18.2 Red Blood Count 4.92 Hemoglobin 13.0 Hematocrit 39.8 Mean Corpuscular Volume 80.8 Mean Corpuscular Hemoglobin 26.5 Mean Corpuscular Hemoglobin Concent 32.8 Red Cell Distribution Width 15.5 Platelet Count 341 Mean Platelet Volume 8.5 Neutrophils (%) (Auto) 88.7 Lymphocytes (%) (Auto) 6.5 Monocytes (%) (Auto) 4.3 Eosinophils (%) (Auto) 0.3 Basophils (%) (Auto) 0.2 Neutrophils # (Auto) 16.2 Lymphocytes # (Auto) 1.2 Monocytes # (Auto) 0.8 Eosinophils # (Auto) 0.0 Basophils # (Auto) 0.0 CBC Comment DIFF FINAL Differential Comment Prothrombin Time 23.3 Prothromb Time International Ratio 2.0 Activated Partial Thromboplast Time 38.0 Blood Urea Nitrogen 21 Creatinine 1.02 Random Glucose 114 Total Protein 9.1 Albumin 3.7 Calcium Level 9.6 Alkaline Phosphatase 127 Aspartate Amino Transf (AST/SGOT) 20 Alanine Aminotransferase (ALT/SGPT) 21 Total Bilirubin 1.7 Sodium Level 132 Potassium Level 3.6 Chloride Level 97 Carbon Dioxide Level 23.4 Anion Gap 12 Estimat Glomerular Filtration Rate 53 Lipase 114 Result Diagram: 05/06/17213905/06/172139 Imaging CT abdomen and pelvis was done as an outpatient. The report was obtained by ER physician. It reveals contained perforated diverticulitis Caprini VTE Risk Assessment Caprini VTE Risk Assessment: Mod/High Risk (score >= 2) Caprini Risk Assessment Model Point Value = 1 Point Value = 2 Point Value = 3 Point Value = 5 Age 41-60 Minor surgery BMI > 25 kg/m2 Swollen legs Varicose veins or History of unexplained or recurrent spontaneous Oral contraceptives or hormone replacement Sepsis (< 1 month) Serious lung disease, including pneumonia (< 1 month) Abnormal pulmonary function Acute myocardial infarction Congestive heart failure (< 1 month) History of inflammatory bowel disease Medical patient at bed rest Age 61-74 Arthroscopic surgery Major open surgery (> 45 min) Laparoscopic surgery (> 45 min) Malignancy Confined to bed (> 72 hours) Immobilizing plaster cast Central venous access Age >= 75 History of VTE Family history of VTE Factor V Leiden Prothrombin [id number] Lupus anticoagulant Anticardiolipin antibodies Elevated serum homocysteine Heparin-induced thrombocytopenia Other congenital or acquired thrombophilia Stroke (< 1 month) Elective arthroplasty Hip, pelvis, or leg fracture Acute spinal cord injury (< 1 month) Prophylaxis Regimen Total Risk Factor Score Risk Level Prophylaxis Regimen 0-1 Low Early ambulation 2 Moderate Order ONE of the following: *Sequential Compression Device (SCD) *Heparin 5000 units SQ BID 3-4 Higher Order ONE of the following medications: *Heparin 5000 units SQ TID *Enoxaparin/Lovenox 40 mg SQ daily (WT < 150 kg, CrCl > 30 mL/min) *Enoxaparin/Lovenox 30 mg SQ daily (WT < 150 kg, CrCl > 10-29 mL/min) *Enoxaparin/Lovenox 30 mg SQ BID (WT < 150 kg, CrCl > 30 mL/min) AND/OR *Sequential Compression Device (SCD) 5 or more Highest Order ONE of the following medications: *Heparin 5000 units SQ TID (Preferred with Epidurals) *Enoxaparin/Lovenox 40 mg SQ daily (WT < 150 kg, CrCl > 30 mL/min) *Enoxaparin/Lovenox 30 mg SQ daily (WT < 150 kg, CrCl > 10-29 mL/min) *Enoxaparin/Lovenox 30 mg SQ BID (WT < 150 kg, CrCl > 30 mL/min) AND *Sequential Compression Device (SCD) Assessment and Plan Assessment and Plan Impression: Contained perforated diverticula Diarrhea Leukocytosis with left shift Acute kidney injury- secondary to dehydration History of recurrent diarrhea previously- with negative C. difficile History of Pseudomonas UTI in November 2016 htn chf afib- on coumadin COPD- not even on breathing treatment aortic valve stenosis- s/p TAVR in 11/24 at [place] hx of colitis confirmed by CT in 10/2016 hx of pseudomonas UTI left breast cancer- s/p mastectomy, lumpectomy, and radiation Plan: Patient was evaluated by general surgeon in ER. At this point, diverticula perforation was contained. We'll continue treatment with IV antibiotics Zosyn. Monitor for diarrhea. I would also hold off on IV fluids since patient has severe systolic dysfunction with valvular disease previously. Patient tells me that her senior principal told her TAVR that she might still have valvular problems post TAVR We'll monitor renal function. resume home meds apart from coumadin Discussed Condition With patient, ER MD, nursing staff, pt's daughter Physician Certification 2 Midnight Certification Type: Admission for Inpatient Services Order for Inpatient Services The services are ordered in accordance with Medicare regulations or non- Medicare payer requirements, as applicable. In the case of services not specified as inpatient-only, they are appropriately provided as inpatient services in accordance with the 2-midnight benchmark. Estimated LOS (days): 2 days is the estimated time the patient will need to remain in the hospital, assuming treatment plan goals are met and no additional complications. Post-Hospital Plan: Home Omar Saucedo MD May 06, 2017 23:50
[2017-05-07] VITALS (12 sets, daily range): BP systolic 116–150; BP diastolic 61–78; PULSE 62–89; RESP 17–20; TEMP 96.4–97.6; O2SAT 94–100
[2017-05-07] MEDS: PIPERACIL-TAZO 4.5 GM PREMIX 100 ML IV SCH ×4 (05:32→23:30)
[2017-05-07 07:36] LABS: AUTOMATED NEUTROPHIL # 12.2 TH/MM3 (1.8-7.7); BASOPHIL % 0.2 % (0.0-2.0); EOSINOPHIL % 0.3 % (0.0-4.0); HEMATOCRIT 36.3 % (35.0-46.0); HEMO FLAGS DIFF FINAL; LYMPH % 8.6 % (9.0-44.0); LYMPHOCYTE # 1.2 TH/MM3 (1.0-4.8); MEAN CORPUSCULAR HEMOGLOBIN 25.4 PG (27.0-34.0); MEAN CORPUSCULAR HGB CONC 31.4 % (32.0-36.0); MONO % 5.3 % (0.0-8.0); NEUT % 85.6 % (16.0-70.0); PLATELET COUNT 317 TH/MM3 (150-450); RED BLOOD COUNT 4.48 MIL/MM3 (4.00-5.30); RED CELL DISTRIBUTION WIDTH 15.3 % (11.6-17.2); WHITE BLOOD COUNT 14.3 TH/MM3 (4.0-11.0)
[2017-05-07 08:06] LABS: BICARBONATE 21.2 MEQ/L (21.0-32.0); POTASSIUM 3.4 MEQ/L (3.5-5.1)
[2017-05-07] MEDS: CARVEDILOL 3.125 MG TAB PO SCH ×2 (08:19→21:02)
[2017-05-07] MEDS: SODIUM CHLORIDE 0.9% FLUSH 10 ML FLUSH IV FLUSH SCH ×2 (08:19→21:00)
--- NOTE | 2017-05-07 10:00 | HHI.PR ---
Subjective Remarks Patient states abdominal pain is better. No fevers or chills No significant nausea or vomiting. No complaint of chest pain. No shortness of breath. Did see Dr. Saldivar this morning. Objective Vitals Vital Signs Date Time Temp Pulse Resp B/P (MAP) Pulse Ox O2 Delivery O2 Flow Rate FiO2 05/07/17 08:00 96.7 76 20 131/75 (93) 98 05/07/17 05:30 97.0 89 17 138/78 (98) 98 05/07/17 04:06 70 05/07/17 02:55 74 05/07/17 02:13 97.6 89 18 146/67 (93) 94 05/07/17 01:28 05/07/17 00:22 79 18 150/72 (98) 99 Room Air 05/06/17 19:33 98.3 110 16 141/75 (97) 94 Room Air I/O 05/06/17 05/06/17 05/06/17 05/07/17 05/07/17 05/07/17 07:00 15:00 23:00 07:00 15:00 23:00 # Voids 1 # Bowel Movements 3 Result Diagram: 05/07/17 0605 05/07/17 0605 Objective Remarks GENERAL: This is a well-nourished, well-developed patient, in no apparent distress. CARDIOVASCULAR: Regular rate and irregular rhythm RESPIRATORY: Clear to auscultation. Breath sounds equal bilaterally. No wheezes , rales, or rhonchi. GASTROINTESTINAL: Abdomen soft, right upper umbilical, left upper tenderness with no rebound or guarding with slightly hypo-active bowel sounds MUSCULOSKELETAL: Extremities without clubbing, cyanosis, or edema. NEURO: Alert & Oriented x4 to person, place, time, situation. Moves all ext x4 A/P Problem List: (1) Systolic CHF, chronic ICD Code: I50.22 - Chronic systolic (congestive) heart failure Status: Chronic Permanent Comment: EF 20-30% on October 2016 echo Last Edited By: Marlyn Multani on May 07, 2017 10:01 Assessment and Plan 1. Acute sigmoid diverticulitis with perforation per CT - nothing by mouth, bowel rest IV antibiotics Zofran, IV fluid hydration and supportive care. Gen. surgery consulted. Due to continued clinical monitoring of patient and possibility of surgical intervention has not been ruled out, will hold Coumadin and initiate Lovenox for anticoagulation. Continue with pain control 2. History of chronic atrial fibrillationcontinue Coreg for rate control. Hold Coumadin until surgical intervention is ruled out, initiate Lovenox. 3. History of chronic systolic congestive heart failure with ejection fraction of 20-30% with a history of aortic stenosis S/P bovine TAVR in November 2016 currently stable and compensated continue with Coreg. 4. Hypokalemia- replete 5 . DVT prophylaxis- INR 2.0, Coumadin on hold until surgery is ruled out, initiate Lovenox Discharge Planning Home when medically stable. Marlyn Multani MD May 07, 2017 10:00
[2017-05-07] MEDS ORDERED: NALOXONE HCL 0.4 MG/ML AMP IV PUSH PRN (10:15)
[2017-05-07] MEDS ORDERED: ACETAMINOPHEN/HYDROcodone 325 MG/5 MG TAB PO PRN (10:15)
[2017-05-07] MEDS ORDERED: ACETAMINOPHEN 325 MG TAB PO PRN (10:15)
[2017-05-07] MEDS ORDERED: POTASSIUM CHLORIDE 20 MEQ CONTROLLED RELEASE TAB PO ONE (12:30)
[2017-05-07] MEDS: D5-1/2 NS + KCL 20 MEQ INJ 1,000 ML IV SCH (12:51)
--- NOTE | 2017-05-07 17:12 | EKG ---
Date Performed: 05/06/2017 Time Performed: 22:03:54 PTAGE: 76 years EKG: ATRIAL FIBRILLATION LEFT ANTERIOR FASCICULAR BLOCK MODERATE VOLTAGE CRITERIA FOR LVH, CONSI ELLA NORMAL VARIANT ST DEVIATION AND MODERATE T-WAVE ABNORMALITY, CONSIDER LATERAL ISCHEMIA ABNORMAL E CG Since PREVIOUS TRACING , no significant change noted PREVIOUS TRACIN10/31/2016 05.03 DOCTOR: Lakeisha Murillo Interpretating Date/Time 05/07/2017 17:11:57
--- NOTE | 2017-05-07 22:32 | MB ---
cc: TURNER HUERTAS MD DATE OF CONSULTATION 05/06/17 REASON FOR CONSULTATION Chief complaint is abdominal pain, contained perforated diverticulitis. HISTORY OF PRESENT ILLNESS The patient is a 76-year-old female who presents with acute onset of abdominal pain. She stated the pain started Thursday and progressively got worse. The pain is sharp and is diffuse. It is located on the left side with some radiation around the abdomen, worse with movement, better with lying still. She came to the emergency department for further evaluation including CT scan showing containing perforated diverticulitis. Surgery was consulted for further evaluation. On my exam, the patient is resting. She does state somewhat significant pain. However, she is otherwise relatively stable. She has noted to have a significant medical history including CHF with a recent CHF exacerbation that was treated medically and improved. The patient also with history of TVAR and presented with some diarrhea which she has had several stool samples that were C diff negative. PAST MEDICAL HISTORY 1. Hypertension, 2. Congestive heart failure 3. Atrial fibrillation on Coumadin 5. Aortic valve stenosis 6. Colitis 7. Pseudomonas 8. Urinary tract infection 9. Left breast cancer. PAST SURGICAL HISTORY 1. Mastectomy 2. Lumpectomy of breast. 3. TVAR [place] October 2016. MEDICATIONS See EMR, coumadin SOCIAL HISTORY Denies smoking. No ETOH or IVDA currently. FAMILY HISTORY Denies hypertension and diabetes. ALLERGIES FUROSEMIDE REVIEW OF SYSTEMS GENERAL: Complains of some chills. HEENT: Denies eye pain and ear pain. NECK: Denies swelling or pain. LUNGS: Complains of wheezes. No cough. CARDIAC: History of aortic valve treatment. Denies current chest pain. ABDOMEN: Complains of the nausea and abdominal pain. : Denies dysuria, hematuria. ENDOCRINE: Denies polyuria, polydipsia. INTEGUMENT: Denies any masses or lesions. PSYCHIATRIC: Denies change in mood or affect. PHYSICAL EXAMINATION GENERAL: The patient in no acute distress. VITAL SIGNS: Temperature 98, pulse 110, respirations 16, blood pressure 141/75, 94% saturation on room air HEENT: PERRLA NECK: Supple. Trachea midline. LUNGS: Bilateral expansion. Equal breath sounds. HEART: S1-S2 regular. ABDOMEN: Soft, distended, positive tenderness to palpation all quadrants. No peritoneal signs. Minimal rebound. : Within normal limits. MUSCULOSKELETAL: No edema. NEUROLOGIC: GCS 15, 5/5 motor all extremities. LABORATORY AND DIAGNOSTIC DATA WBC 18.2, hemoglobin 13, hematocrit 39.8, platelets 341 Sodium 132, potassium 3.6, chloride 97, BUN is 21, creatinine 8.1, calcium 9.6, bilirubin 1.7, AST 20, ALT 20, lipase 114, INR is two. IMAGING STUDIES CT scan reviewed by myself showing acute inflamed sigmoid diverticulitis multiple diverticula, small concern area of localized perforation without significant free fluid or intraperitoneal air. ASSESSMENT The patient is a 76-year-old female multiple medical issues including history of aortic stenosis status post TVAR on Coumadin, INR two. She presents with concern for acute inflamed diverticulitis, possible small contained perforation, leukocytosis. PLAN After full clinical radiologic laboratory workup, the patient with above-named issues including diverticulitis which is somewhat complicated. The patient is a complex medical patient and at very high risk for any operative intervention. I discussed with the patient in detail regarding initial clinical treatment with nonoperative management including IV antibiotics, close observation, serial abdominal exams, n.p.o. pain control. Discussed with the patient regarding possibility of operative intervention. However, again as stated the patient is high surgical risk and will try and treat this initially nonoperatively. MD LUECRO Fagan/ /8:43 PM /10:14 PM ARASELI
[2017-05-08] VITALS (10 sets, daily range): BP systolic 117–184; BP diastolic 56–90; PULSE 60–90; RESP 16–20; TEMP 96.6–98.1; O2SAT 94–100
[2017-05-08 01:09] LABS: C. DIFF EPI 027 PRESUMPTIVE NEGATIVE (NEGATIVE)
[2017-05-08] MEDS: PIPERACIL-TAZO 4.5 GM PREMIX 100 ML IV SCH ×2 (05:28→11:30)
[2017-05-08] MEDS: CARVEDILOL 3.125 MG TAB PO SCH ×2 (07:50→20:40)
[2017-05-08] MEDS: SODIUM CHLORIDE 0.9% FLUSH 10 ML FLUSH IV FLUSH SCH ×2 (07:50→20:41)
[2017-05-08] MEDS ORDERED: ENOXAPARIN SODIUM 60 MG/0.6 ML SYRINGE SQ SCH (09:00)
--- NOTE | 2017-05-08 10:05 | HHI.PR ---
Subjective Subjective Notes Resting in bed Feeling better Objective Vitals/I&O Vital Signs Date Time Temp Pulse Resp B/P (MAP) Pulse Ox O2 Delivery O2 Flow Rate FiO2 05/08/17 08:00 96.7 72 18 139/65 (89) 100 05/07/17 00:22 Room Air Labs Laboratory Tests Test 05/07/17 14:05 05/07/17 23:30 05/08/17 09:10 05/08/17 09:18 Nasal Screen MRSA (PCR) MRSA NOT DETECTED Stool C. difficile Toxin (PCR) NEGATIVE Stl C. difficile Toxin Epiderm 027 PRESUMPTIVE NEGATIVE Cardiovascular: Regular Lungs: Clear Abdomen: Non-distended, Non-tender Extremities: No edema A/P Assessment and Plan 76 year old female with acute diverticulitis with small contained perforation -NPO -Await lab results -Continue Zosyn -VSS -If WBC continues to decrease may start some clear liquids -If increased may re-scan Attending Statement Patient seen at bedside abdominal pain better wbc improving no fevers continue non op mgnt Attestation The exam, history, and the medical decision-making described in the above note were completed with the assistance of the mid-level provider. I reviewed and agree with the findings presented. I attest that I had a [id number] encounter with the patient on the same day, and personally performed and documented my assessment and findings in the medical record. Enid Rapp May 08, 2017 10:05 Ignacio Saldivar MD May 11, 2017 10:28
[2017-05-08 10:10] LABS: AUTOMATED NEUTROPHIL # 9.6 TH/MM3 (1.8-7.7); BASOPHIL # 0.1 TH/MM3 (0-0.2); BASOPHIL % 0.6 % (0.0-2.0); EOSINOPHIL # 0.3 TH/MM3 (0-0.4); EOSINOPHIL % 2.3 % (0.0-4.0); HEMATOCRIT 35.5 % (35.0-46.0); HEMO FLAGS DIFF FINAL; LYMPH % 8.7 % (9.0-44.0); MEAN CELL VOLUME 80.7 FL (80.0-100.0); MEAN CORPUSCULAR HEMOGLOBIN 26.2 PG (27.0-34.0); MEAN CORPUSCULAR HGB CONC 32.4 % (32.0-36.0); MONO % 6.1 % (0.0-8.0); NEUT % 82.3 % (16.0-70.0); PLATELET COUNT 308 TH/MM3 (150-450); RED CELL DISTRIBUTION WIDTH 15.4 % (11.6-17.2); WHITE BLOOD COUNT 11.7 TH/MM3 (4.0-11.0)
[2017-05-08 10:16] LABS: INTERNATIONAL NORMALIZED RATIO 3.1 RATIO; PROTHROMBIN TIME - PATIENT 36.1 SEC (9.8-11.6)
[2017-05-08 10:38] LABS: BICARBONATE 21.2 MEQ/L (21.0-32.0); POTASSIUM 3.3 MEQ/L (3.5-5.1)
[2017-05-08] MEDS ORDERED: Custom Consult Pharmacy 1 EA OTHER SCH (11:30)
[2017-05-08] MEDS: D5-1/2 NS + KCL 20 MEQ INJ 1,000 ML IV SCH (11:32)
--- NOTE | 2017-05-08 11:37 | HHI.PR ---
Subjective Remarks Reports that pain better overnight. Reports her Coreg was not given yesterday evening because her blood pressure was low. She denies any chest pain or shortness of breath. Objective Vitals Vital Signs Date Time Temp Pulse Resp B/P (MAP) Pulse Ox O2 Delivery O2 Flow Rate FiO2 05/08/17 08:00 96.7 72 18 139/65 (89) 100 05/08/17 04:03 60 05/08/17 04:00 97.4 70 20 117/56 (76) 94 05/08/17 00:00 97.7 72 19 132/58 (82) 96 05/07/17 20:00 69 05/07/17 20:00 97.0 82 19 116/67 (83) 95 05/07/17 16:52 96.6 67 19 120/68 (85) 100 05/07/17 15:46 62 05/07/17 12:41 67 05/07/17 12:20 96.4 68 20 131/61 (84) 100 I/O 05/07/17 05/07/17 05/07/17 05/08/17 05/08/17 05/08/17 07:00 15:00 23:00 07:00 15:00 23:00 Intake Total 100 ml 220 ml Output Total 480 ml Balance 100 ml -260 ml Intake Oral 220 ml IV Total 100 ml Output Urine Total 280 ml Stool Total 200 ml # Voids 1 3 # Bowel Movements 3 8 1 Result Diagram: 05/08/1718 05/08/17 0918 Objective Remarks GENERAL: This is a well-nourished, well-developed patient, in no apparent distress. CARDIOVASCULAR: Regular rate and irregular rhythm RESPIRATORY: Clear to auscultation. Breath sounds equal bilaterally. No wheezes , rales, or rhonchi. GASTROINTESTINAL: Abdomen soft, left upper and lower tenderness with no rebound or guarding with slightly hypo-active bowel sounds MUSCULOSKELETAL: Extremities without clubbing, cyanosis, or edema. NEURO: Alert & Oriented x4 to person, place, time, situation. Moves all ext x4 A/P Problem List: (1) Systolic CHF, chronic ICD Code: I50.22 - Chronic systolic (congestive) heart failure Status: Chronic Permanent Comment: EF 20-30% on October 2016 echo Last Edited By: Marlyn Multani on May 07, 2017 10:01 Assessment and Plan 1. Acute sigmoid diverticulitis with perforation per CT - nothing by mouth, bowel rest IV antibiotics Zofran, IV fluid hydration and supportive care. Appreciate Gen. surgery Dr. Ambrosio recommendations. Due to continued clinical monitoring of patient and possibility of surgical intervention has not been ruled out, will hold Coumadin and initiate Lovenox for anticoagulation when INR is less than 2, today's INR went up to 3.1 therefore will continue to help both Coumadin and Lovenox. Continue with pain control 2. History of chronic atrial fibrillation- continue Coreg for rate control. Hold Coumadin until surgical intervention is ruled out, initiate Lovenox when INR is less than 2. 3. History of chronic systolic congestive heart failure with ejection fraction of 20-30% with a history of aortic stenosis S/P bovine TAVR in November 2016 currently stable and compensated continue with Coreg. Monitor closely with IVF hydration 4. Hypokalemia- replete 5. Acute kidney injury - increase her fluid hydration monitor. Avoid nephrotoxins. Have pharmacy monitor creatinine and adjust Zosyn as needed for continued antibiotics. 6. DVT prophylaxis- INR 3.1, Coumadin on hold until surgery is ruled out Discharge Planning Home when medically stable. Marlyn Multani MD May 08, 2017 11:37
[2017-05-08] MEDS ORDERED: POTASSIUM CHLORIDE 20 MEQ CONTROLLED RELEASE TAB PO ONE (12:30)
[2017-05-08] MEDS: PIPERACIL-TAZO 3.375 GM PREMIX 50 ML IV SCH (17:44)
[2017-05-09] VITALS (9 sets, daily range): BP systolic 141–163; BP diastolic 64–91; PULSE 61–75; RESP 16–19; TEMP 96.5–98.5; O2SAT 96–98
[2017-05-09] MEDS: PIPERACIL-TAZO 3.375 GM PREMIX 50 ML IV SCH ×5 (00:26→23:46)
[2017-05-09] MEDS: D5-1/2 NS + KCL 20 MEQ INJ 1,000 ML IV SCH ×2 (05:40→20:48)
[2017-05-09 07:53] LABS: AUTOMATED NEUTROPHIL # 8.2 TH/MM3 (1.8-7.7); BASOPHIL % 0.4 % (0.0-2.0); EOSINOPHIL # 0.2 TH/MM3 (0-0.4); EOSINOPHIL % 2.1 % (0.0-4.0); HEMATOCRIT 36.1 % (35.0-46.0); HEMO FLAGS DIFF FINAL; LYMPH % 13.2 % (9.0-44.0); LYMPHOCYTE # 1.4 TH/MM3 (1.0-4.8); MEAN CELL VOLUME 79.6 FL (80.0-100.0); MEAN CORPUSCULAR HEMOGLOBIN 26.2 PG (27.0-34.0); MEAN CORPUSCULAR HGB CONC 32.9 % (32.0-36.0); MONO % 8.8 % (0.0-8.0); NEUT % 75.5 % (16.0-70.0); PLATELET COUNT 341 TH/MM3 (150-450); RED BLOOD COUNT 4.54 MIL/MM3 (4.00-5.30); RED CELL DISTRIBUTION WIDTH 15.8 % (11.6-17.2); WHITE BLOOD COUNT 10.9 TH/MM3 (4.0-11.0)
--- NOTE | 2017-05-09 08:40 | HHI.PR ---
Subjective Subjective Notes feels better wbc normal, no fevers, mild pain Objective Vitals/I&O Vital Signs Date Time Temp Pulse Resp B/P (MAP) Pulse Ox O2 Delivery O2 Flow Rate FiO2 05/09/17 08:04 75 05/09/17 04:00 96.5 16 149/74 (99) 98 05/07/17 00:22 Room Air Labs Laboratory Tests Test 05/08/17 09:10 05/08/17 09:18 05/09/17 06:22 Prothrombin Time 36.1 Prothromb Time International Ratio 3.1 White Blood Count 11.7 10.9 Red Blood Count 4.40 4.54 Hemoglobin 11.5 11.9 Hematocrit 35.5 36.1 Mean Corpuscular Volume 80.7 79.6 Mean Corpuscular Hemoglobin 26.2 26.2 Mean Corpuscular Hemoglobin Concent 32.4 32.9 Red Cell Distribution Width 15.4 15.8 Platelet Count 308 341 Mean Platelet Volume 8.1 8.2 Neutrophils (%) (Auto) 82.3 75.5 Lymphocytes (%) (Auto) 8.7 13.2 Monocytes (%) (Auto) 6.1 8.8 Eosinophils (%) (Auto) 2.3 2.1 Basophils (%) (Auto) 0.6 0.4 Neutrophils # (Auto) 9.6 8.2 Lymphocytes # (Auto) 1.0 1.4 Monocytes # (Auto) 0.7 1.0 Eosinophils # (Auto) 0.3 0.2 Basophils # (Auto) 0.1 0.0 CBC Comment DIFF FINAL DIFF FINAL Differential Comment Blood Urea Nitrogen 26 Creatinine 1.21 Random Glucose 70 Calcium Level 8.6 Sodium Level 136 Potassium Level 3.3 Chloride Level 104 Carbon Dioxide Level 21.2 Anion Gap 11 Estimat Glomerular Filtration Rate 43 Abdomen: Other (soft mild ttp, no rebound) A/P Assessment and Plan 76 year old female with acute diverticulitis with small contained perforation -full liq diet -Await lab results -Continue Inocenciasyn -VSS Ignacio Saldivar MD May 09, 2017 08:40
[2017-05-09] MEDS: SODIUM CHLORIDE 0.9% FLUSH 10 ML FLUSH IV FLUSH SCH ×2 (09:01→20:49)
[2017-05-09] MEDS: CARVEDILOL 3.125 MG TAB PO SCH ×2 (09:01→20:47)
--- NOTE | 2017-05-09 09:45 | HHI.PR ---
Subjective Remarks Patient reports feeling much better today. Her diet was advanced to full liquid per general surgery. Abdominal pain is improved. No nausea or vomiting. Objective Vitals Vital Signs Date Time Temp Pulse Resp B/P (MAP) Pulse Ox O2 Delivery O2 Flow Rate FiO2 05/09/17 08:04 75 05/09/17 08:00 98.5 61 19 163/77 (105) 97 05/09/17 04:00 96.5 68 16 149/74 (99) 98 05/09/17 04:00 64 05/09/17 00:00 63 05/09/17 00:00 97.8 75 17 141/64 (89) 98 05/08/17 20:00 96.8 67 16 184/90 (121) 99 05/08/17 18:32 61 152/81 (104) 05/08/17 16:00 96.6 68 18 177/76 (109) 100 05/08/17 15:00 90 05/08/17 12:35 98.1 65 18 135/67 (89) 100 I/O 05/08/17 05/08/17 05/08/17 05/09/17 05/09/17 05/09/17 07:00 15:00 23:00 07:00 15:00 23:00 Intake Total 220 ml 100 ml 961 ml 240 ml Output Total 480 ml Balance -260 ml 100 ml 961 ml 240 ml Intake Oral 220 ml 480 ml 240 ml IV Total 100 ml 481 ml Output Urine Total 280 ml Stool Total 200 ml # Voids 6 2 # Bowel Movements 1 7 2 Result Diagram: 05/09/17 0622 05/08/17 0918 Objective Remarks GENERAL: Elderly female in no apparent distress. CARDIOVASCULAR: Normal rate and regular rhythm without murmurs, gallops, or rubs. RESPIRATORY: Good respiratory efforts. Breath sounds equal and clear to auscultation bilaterally. GASTROINTESTINAL: Abdomen soft, mild, diffuse tenderness to palpation. Normal active bowel sounds MUSCULOSKELETAL: Extremities without cyanosis, or edema. NEURO: Alert & Oriented x4 to person, place, time, situation. Moves all ext x4 PSYCH: Appropriate mood and affect. A/P Assessment and Plan 1. Acute sigmoid diverticulitis with perforation per CT -status post bowel rest , continue IV antibiotics Zofran, IV fluid hydration and supportive care. Appreciate Gen. surgery Dr. Ambrosio recommendations. Continue to advance diet slowly as tolerated, will continue to hold Coumadin and initiate Lovenox for anticoagulation when INR is less than 2, today's INR went up to 3.4. therefore will continue to help both Coumadin and Lovenox. Continue with pain control. If continued to improve, may consider discharging on Augmentin 2. History of chronic atrial fibrillation- continue Coreg for rate control. Hold Coumadin until surgical intervention is ruled out, initiate Lovenox when INR is less than 2. 3. History of chronic systolic congestive heart failure with ejection fraction of 20-30% with a history of aortic stenosis S/P bovine TAVR in November 2016 currently stable and compensated continue with Coreg. Monitor closely with IVF hydration 4. Hypokalemia- repleted 5. Acute kidney injury - increase her fluid hydration monitor. Avoid nephrotoxins. Have pharmacy monitor creatinine and adjust Zosyn as needed for continued antibiotics. 6. DVT prophylaxis- INR 3.4, Coumadin on hold Asia Duarte MD May 09, 2017 09:45
[2017-05-09 11:38] LABS: APTT (PATIENT) 42.5 SEC (24.3-30.1); INTERNATIONAL NORMALIZED RATIO 3.4 RATIO; PROTHROMBIN TIME - PATIENT 40.1 SEC (9.8-11.6)
[2017-05-10] VITALS (14 sets, daily range): BP systolic 137–196; BP diastolic 76–91; PULSE 48–82; RESP 16–20; TEMP 96–97.8; O2SAT 97–99
[2017-05-10] MEDS: PIPERACIL-TAZO 3.375 GM PREMIX 50 ML IV SCH (05:16)
[2017-05-10] MEDS: SODIUM CHLORIDE 0.9% FLUSH 10 ML FLUSH IV FLUSH SCH ×2 (08:20→20:06)
[2017-05-10] MEDS: CARVEDILOL 3.125 MG TAB PO SCH ×2 (08:20→19:57)
[2017-05-10 09:52] LABS: HEMATOCRIT 35.4 % (35.0-46.0); MEAN CELL VOLUME 79.8 FL (80.0-100.0); MEAN CORPUSCULAR HEMOGLOBIN 26.1 PG (27.0-34.0); MEAN CORPUSCULAR HGB CONC 32.7 % (32.0-36.0); PLATELET COUNT 338 TH/MM3 (150-450); RED BLOOD COUNT 4.44 MIL/MM3 (4.00-5.30); RED CELL DISTRIBUTION WIDTH 15.7 % (11.6-17.2); REVIEW FLAG FINAL; WHITE BLOOD COUNT 10.7 TH/MM3 (4.0-11.0)
[2017-05-10 09:55] LABS: INTERNATIONAL NORMALIZED RATIO 2.9 RATIO; PROTHROMBIN TIME - PATIENT 33.9 SEC (9.8-11.6)
--- NOTE | 2017-05-10 10:16 | HHI.PR ---
Subjective Remarks Patient reports feeling much better. No abdominal pain. Inquiring about when she can go home. Objective Vitals Vital Signs Date Time Temp Pulse Resp B/P (MAP) Pulse Ox O2 Delivery O2 Flow Rate FiO2 05/10/17 07:50 96.8 74 20 163/84 (110) 98 05/10/17 06:33 48 05/10/17 04:00 96.0 60 18 174/91 (118) 97 05/10/17 00:13 56 05/10/17 00:00 96.5 68 17 137/84 (101) 98 05/09/17 20:00 74 05/09/17 20:00 96.5 65 18 163/91 (115) 98 05/09/17 16:28 96.8 63 19 143/67 (92) 96 05/09/17 16:04 62 05/09/17 12:44 97.5 64 19 150/73 (98) 96 05/09/17 12:08 61 I/O 05/09/17 05/09/17 05/09/17 05/10/17 05/10/17 05/10/17 07:00 15:00 23:00 07:00 15:00 23:00 Intake Total 240 ml 1080 ml 240 ml Balance 240 ml 1080 ml 240 ml Intake Oral 240 ml 1080 ml 240 ml # Voids 2 6 2 # Bowel Movements 2 9 2 Result Diagram: 05/10/17 0827 05/08/17 0918 Objective Remarks GENERAL: Elderly female in no apparent distress. CARDIOVASCULAR: Normal rate and regular rhythm without murmurs, gallops, or rubs. RESPIRATORY: Good respiratory efforts. Breath sounds equal and clear to auscultation bilaterally. GASTROINTESTINAL: Abdomen soft, non tender, non distended. Normal active bowel sounds MUSCULOSKELETAL: Extremities without cyanosis, or edema. NEURO: Alert & Oriented x4 to person, place, time, situation. Moves all ext x4 PSYCH: Appropriate mood and affect. A/P Problem List: (1) Systolic CHF, chronic ICD Code: I50.22 - Chronic systolic (congestive) heart failure Status: Chronic Permanent Comment: EF 20-30% on October 2016 echo Last Edited By: Marlyn Multani on May 07, 2017 10:01 Assessment and Plan 1. Acute sigmoid diverticulitis with perforation per CT -status post bowel rest , continue IV antibiotics Zofran, IV fluid hydration and supportive care. Appreciate Gen. surgery Dr. Ambrosio recommendations. Advance diet to heart healthy. INR 2.9 today therefore will continue to hold Coumadin. Transition to oral antibiotics with Augmentin. Stop Zosyn. 2. History of chronic atrial fibrillation- continue Coreg for rate control. Hold Coumadin for now. Plan to resume Coumadin tomorrow or on discharge. 3. History of chronic systolic congestive heart failure with ejection fraction of 20-30% with a history of aortic stenosis S/P bovine TAVR in November 2016 currently stable and compensated continue with Coreg. Monitor closely with IVF hydration 4. Hypokalemia- repleted 5. Acute kidney injury - Resolved. Stop IVF 6. DVT prophylaxis- INR 2.9, Coumadin on hold Discharge Planning Plan to DC in AM if she continues to improve and ok with Surgery. Asia Duarte MD May 10, 2017 10:16
[2017-05-10 10:17] LABS: BICARBONATE 19.6 MEQ/L (21.0-32.0); POTASSIUM 3.5 MEQ/L (3.5-5.1)
--- NOTE | 2017-05-10 12:28 | HHI.PR ---
Subjective Subjective Notes Reports pain is minimal Tolerating full liquids today Objective Vitals/I&O Vital Signs Date Time Temp Pulse Resp B/P (MAP) Pulse Ox O2 Delivery O2 Flow Rate FiO2 05/10/17 07:50 96.8 74 20 163/84 (110) 98 05/07/17 00:22 Room Air Labs Laboratory Tests Test 05/10/17 08:27 White Blood Count 10.7 Red Blood Count 4.44 Hemoglobin 11.6 Hematocrit 35.4 Mean Corpuscular Volume 79.8 Mean Corpuscular Hemoglobin 26.1 Mean Corpuscular Hemoglobin Concent 32.7 Red Cell Distribution Width 15.7 Platelet Count 338 Mean Platelet Volume 8.4 Prothrombin Time 33.9 Prothromb Time International Ratio 2.9 Blood Urea Nitrogen 7 Creatinine 0.83 Random Glucose 77 Calcium Level 8.8 Sodium Level 139 Potassium Level 3.5 Chloride Level 107 Carbon Dioxide Level 19.6 Anion Gap 12 Estimat Glomerular Filtration Rate 67 Abdomen: Non-distended, Non-tender A/P Assessment and Plan Diverticulitis with loose BM's WBC's normalized Tolerating full liquids Plan: Low residue diet in AM Transition to PO antibiotics tomorrow I attest that I had a [id number] encounter with the patient on the same day, and personally performed and documented my assessment and findings in the medical record. The following services were provided during this hospital visit: Chart data review, vital sign assessments/reviewing monitor data Review of consultations notes if present. Medication orders/review and/or management Ordering and/or reviewing lab tests Ordering and/or interpreting/reviewing x-rays and/or diagnostic studies Care of the patient and discussion of the patient with the care team Documentation time To help prompt me to consider important information that might be impacting today's encounter and assessment, information from prior notes written by myself or my colleagues may have been "brought forward/copy and pasted" into today's note. Xu Dahl MD May 10, 2017 12:28
[2017-05-10] MEDS ORDERED: POTASSIUM CHLOR 20 MEQ PREMIX 100 ML IV ONE (13:00)
[2017-05-10] MEDS ORDERED: ENALAPRILAT 1.25 MG/ML VIAL IV PUSH PRN (15:15)
[2017-05-10] MEDS ORDERED: POTASSIUM CHLORIDE 20 MEQ CONTROLLED RELEASE TAB PO ONE (15:15)
[2017-05-10] MEDS: AMOXICILLIN/CLAVULANATE K 875 MG TAB PO SCH (19:56)
[2017-05-10 22:44] LABS: BLOOD, URINE TRACE (NEG); COMMENT (UR) CULTURE INDICATED; CULTURE IF INDICATED CULTURE INDICATED; GLUCOSE,URINE NEG (NEG); KETONE, URINE NEG (NEG); NITRITE,URINE NEG (NEG); PH, URINE 5.5 (5.0-8.5); SQUAMOUS EPITHELIAL CELL URINE 2 /hpf (0-5); URINE COLOR YELLOW (YELLW/STRAW)
[2017-05-10] MEDS ORDERED: cloNIDine HCL 0.1 MG TAB PO ONE (23:30)
[2017-05-10] MEDS ORDERED: RESP: ALBUTEROL 2.5 MG/IPRATROPIUM 0.5 MG NEB (SCH) NEB (23:45)
[2017-05-11] VITALS (11 sets, daily range): BP systolic 124–196; BP diastolic 61–91; PULSE 54–91; RESP 16–20; TEMP 96.6–98.1; O2SAT 97–100
[2017-05-11] MEDS ORDERED: PIPERACIL-TAZO 3.375 GM PREMIX 50 ML IV SCH (02:00)
[2017-05-11] MEDS: CARVEDILOL 3.125 MG TAB PO SCH ×2 (08:54→22:22)
[2017-05-11] MEDS: SODIUM CHLORIDE 0.9% FLUSH 10 ML FLUSH IV FLUSH SCH ×2 (08:54→21:00)
[2017-05-11] MEDS: AMOXICILLIN/CLAVULANATE K 875 MG TAB PO SCH ×2 (08:54→22:22)
[2017-05-11] MEDS ORDERED: cloNIDine HCL 0.1 MG TAB PO PRN (09:45)
[2017-05-11] MEDS ORDERED: amLODIPine BESYLATE 5 MG TAB PO ONE (09:45)
[2017-05-11] MEDS ORDERED: LOPERAMIDE HCL 2 MG CAP PO ONE (09:45)
--- NOTE | 2017-05-11 09:52 | HHI.PR ---
Subjective Remarks Patient continues to have diarrhea this morning. No abdominal pain. No nausea or vomiting. Afebrile. BP uncontrolled Objective Vitals Vital Signs Date Time Temp Pulse Resp B/P (MAP) Pulse Ox O2 Delivery O2 Flow Rate FiO2 05/11/17 08:00 96.6 83 20 170/91 (117) 100 05/11/17 04:00 97.2 59 16 156/80 (105) 98 05/11/17 01:00 124/61 (82) 05/11/17 00:02 66 05/11/17 00:00 98.1 66 17 175/79 (111) 97 05/10/17 20:02 77 05/10/17 20:00 96.3 67 16 183/89 (120) 98 05/10/17 18:05 81 196/88 (124) 05/10/17 16:32 177/80 (112) 05/10/17 16:05 82 05/10/17 15:00 97.8 68 20 185/76 (112) 99 05/10/17 12:04 74 05/10/17 11:45 97.6 74 20 175/85 (115) 99 I/O 05/10/17 05/10/17 05/10/17 05/11/17 05/11/17 05/11/17 07:00 15:00 23:00 07:00 15:00 23:00 Intake Total 240 ml 500 ml 750 ml 240 ml Balance 240 ml 500 ml 750 ml 240 ml Intake Oral 240 ml 750 ml 240 ml IV Total 500 ml 0 ml # Voids 2 8 2 # Bowel Movements 2 6 2 Result Diagram: 05/10/1782605/10/17826 Objective Remarks GENERAL: Elderly female in no apparent distress. CARDIOVASCULAR: Normal rate and regular rhythm without murmurs, gallops, or rubs. RESPIRATORY: Good respiratory efforts. Breath sounds equal and clear to auscultation bilaterally. GASTROINTESTINAL: Abdomen soft, non tender, non distended. Normal active bowel sounds MUSCULOSKELETAL: Extremities without cyanosis, or edema. NEURO: Alert & Oriented x4 to person, place, time, situation. Moves all ext x4 PSYCH: Appropriate mood and affect. A/P Problem List: (1) Systolic CHF, chronic ICD Code: I50.22 - Chronic systolic (congestive) heart failure Status: Chronic Permanent Comment: EF 20-30% on October 2016 echo Last Edited By: Marlyn Multani on May 07, 2017 10:01 Assessment and Plan Acute sigmoid diverticulitis with perforation per CT -status post bowel rest, continue IV antibiotics Zofran, IV fluid hydration and supportive care. Appreciate Gen. surgery Dr. Ambrosio recommendations. Advance diet to heart healthy. INR Continue oral antibiotics with Augmentin. Zosyn Dced 04/19. Avoiding fluoroquinolones and flagyl due to interaction with Coumadin. Diarrhea: Probably secondary to antibiotics and patient has been a clear liquid diet for while. C diff neg. DW Dr. Saldivar. Will give one dose of I modium to help with symptoms. Continue to monitor. History of chronic atrial fibrillation- continue Coreg for rate control. Hold Coumadin for now. INR yesterday 2.9. INR pending this morning. Plan to resume Coumadin on discharge. History of chronic systolic congestive heart failure with ejection fraction of 20-30% with a history of aortic stenosis S/P bovine TAVR in November 2016 currently stable and compensated continue with Coreg. Monitor closely with IVF hydration Hypokalemia- repleted Acute kidney injury - Resolved. Stop IVF DVT prophylaxis- INR pending. Discharge Planning Plan to DC in AM if she continues to improve and ok with Surgery. Asia Duarte MD May 11, 2017 09:52
[2017-05-11 10:25] LABS: POTASSIUM 3.8 MEQ/L (3.5-5.1)
--- NOTE | 2017-05-11 10:29 | HHI.PR ---
Subjective Subjective Notes Doing well No abdominal pain Does have diarrhea BP high overnight Daughter Emperatriz at bedside Objective Vitals/I&O Vital Signs Date Time Temp Pulse Resp B/P (MAP) Pulse Ox O2 Delivery O2 Flow Rate FiO2 05/11/17 08:00 96.6 83 20 170/91 (117) 100 Labs Laboratory Tests Test 05/10/17 16:00 05/11/17 09:05 Urine Color YELLOW Urine Turbidity CLEAR Urine pH 5.5 Urine Specific [place] 1.013 Urine Protein 30 Urine Glucose (UA) NEG Urine Ketones NEG Urine Occult Blood TRACE Urine Nitrite NEG Urine Bilirubin NEG Urine Urobilinogen LESS THAN 2.0 Urine Leukocyte Esterase MOD Urine RBC 3 Urine WBC 11 Urine Squamous Epithelial Cells 2 Urine Amorphous Sediment RARE Microscopic Urinalysis Comment CULTURE INDICATED Blood Urea Nitrogen 6 Creatinine 0.71 Random Glucose 67 Calcium Level 8.9 Sodium Level 139 Potassium Level 3.8 Chloride Level 110 Carbon Dioxide Level 21.0 Anion Gap 8 Estimat Glomerular Filtration Rate 80 Date/Time Source Procedure Growth Status 05/10/17 16:00 Urine Random Urine Urine Culture Pending Received Cardiovascular: Regular Lungs: Clear Abdomen: Non-distended, Non-tender Extremities: No edema A/P Assessment and Plan 76 year old female with acute diverticulitis with small contained perforation -Low residue diet -Continue Augmentin -HEPAS to manage HTN -Stable from GS standpoint Attending Statement patient seen at bedside abdomen benign, htn tolerating diet d/c planning Attestation The exam, history, and the medical decision-making described in the above note were completed with the assistance of the mid-level provider. I reviewed and agree with the findings presented. I attest that I had a [id number] encounter with the patient on the same day, and personally performed and documented my assessment and findings in the medical record. Enid Rapp May 11, 2017 10:29 Ignacio Saldivar MD May 15, 2017 15:30
[2017-05-11 20:28] LABS: INTERNATIONAL NORMALIZED RATIO 2.2 RATIO; PROTHROMBIN TIME - PATIENT 25.6 SEC (9.8-11.6)
[2017-05-12] VITALS (9 sets, daily range): BP systolic 145–181; BP diastolic 76–87; PULSE 57–77; RESP 17–18; TEMP 96.6–98; O2SAT 93–99
[2017-05-12] MEDS ORDERED: CLINDAMYCIN INJ 300 MG in SODIUM CHLORIDE 0.9% INJ 100 ML IV SCH (03:00)
[2017-05-12 07:54] LABS: HEMATOCRIT 35.5 % (35.0-46.0); MEAN CORPUSCULAR HEMOGLOBIN 25.7 PG (27.0-34.0); MEAN CORPUSCULAR HGB CONC 32.2 % (32.0-36.0); PLATELET COUNT 361 TH/MM3 (150-450); RED BLOOD COUNT 4.44 MIL/MM3 (4.00-5.30); RED CELL DISTRIBUTION WIDTH 15.2 % (11.6-17.2); REVIEW FLAG FINAL; WHITE BLOOD COUNT 10.3 TH/MM3 (4.0-11.0)
[2017-05-12 07:57] LABS: INTERNATIONAL NORMALIZED RATIO 1.8 RATIO
[2017-05-12] MEDS: CARVEDILOL 3.125 MG TAB PO SCH (08:07)
[2017-05-12] MEDS: amLODIPine BESYLATE 5 MG TAB PO SCH (08:08)
[2017-05-12] MEDS: SODIUM CHLORIDE 0.9% FLUSH 10 ML FLUSH IV FLUSH SCH ×2 (08:08→22:02)
[2017-05-12] MEDS: AMOXICILLIN/CLAVULANATE K 875 MG TAB PO SCH ×2 (08:16→22:02)
--- NOTE | 2017-05-12 09:32 | HHI.PR ---
Subjective Subjective Notes htn this am, pain better, bms tolerating diet Objective Vitals/I&O Vital Signs Date Time Temp Pulse Resp B/P (MAP) Pulse Ox O2 Delivery O2 Flow Rate FiO2 05/12/17 08:58 98.0 72 18 181/85 (117) 98 Labs Laboratory Tests Test 05/11/17 19:31 05/12/17 06:50 05/12/17 06:58 Prothrombin Time 25.6 21.0 Prothromb Time International Ratio 2.2 1.8 White Blood Count 10.3 Red Blood Count 4.44 Hemoglobin 11.4 Hematocrit 35.5 Mean Corpuscular Volume 80.0 Mean Corpuscular Hemoglobin 25.7 Mean Corpuscular Hemoglobin Concent 32.2 Red Cell Distribution Width 15.2 Platelet Count 361 Mean Platelet Volume 8.0 Date/Time Source Procedure Growth Status 05/10/17 16:00 Urine Random Urine Urine Culture - Preliminary NO GROWTH IN 24 HOURS. Resulted Abdomen: Other (soft mild ttp, no rebound) A/P Assessment and Plan 76 year old female with acute diverticulitis with small contained perforation -Low residue diet -Continue Augmentin -HEPAS to manage HTN -Stable from GS standpoint, dc planning when htn better controlled Igancio Saldivar MD May 12, 2017 09:32
--- NOTE | 2017-05-12 10:35 | HHI.PR ---
Subjective Remarks Patient reports she is feeling better. She is eating betted. Less diarrhea. No n /v Noted to have some pause on the monitor, bradycardia BP still not well controlled. Objective Vitals Vital Signs Date Time Temp Pulse Resp B/P (MAP) Pulse Ox O2 Delivery O2 Flow Rate FiO2 05/12/17 08:58 98.0 72 18 181/85 (117) 98 05/12/17 04:00 96.7 66 17 145/87 (106) 99 05/12/17 00:00 96.6 77 17 170/86 (114) 97 05/11/17 20:08 91 05/11/17 20:00 97.4 65 18 178/82 (114) 98 05/11/17 17:58 73 176/83 (114) 05/11/17 17:55 54 196/86 (122) 05/11/17 16:00 97.0 71 20 137/79 (98) 98 05/11/17 12:00 97.8 62 20 166/73 (104) 98 I/O 05/11/17 05/11/17 05/11/17 05/12/17 05/12/17 05/12/17 07:00 15:00 23:00 07:00 15:00 23:00 Intake Total 240 ml 360 ml Balance 240 ml 360 ml Intake Oral 240 ml 360 ml # Voids 2 4 2 # Bowel Movements 2 1 2 Result Diagram: 05/12/17 0650 05/11/17 0905 Objective Remarks GENERAL: Elderly female in no apparent distress. CARDIOVASCULAR: Bradycardic and irregular rhythm without murmurs, gallops, or rubs. RESPIRATORY: Good respiratory efforts. Breath sounds equal and clear to auscultation bilaterally. GASTROINTESTINAL: Abdomen soft, non tender, non distended. Normal active bowel sounds MUSCULOSKELETAL: Extremities without cyanosis, or edema. NEURO: Alert & Oriented x4 to person, place, time, situation. Moves all ext x4 PSYCH: Appropriate mood and affect. A/P Problem List: (1) Systolic CHF, chronic ICD Code: I50.22 - Chronic systolic (congestive) heart failure Status: Chronic Permanent Comment: EF 20-30% on October 2016 echo Last Edited By: Marlyn Multani on May 07, 2017 10:01 Assessment and Plan Acute sigmoid diverticulitis with perforation per CT -status post bowel rest, continue IV antibiotics Zofran, IV fluid hydration and supportive care. Appreciate Gen. surgery Dr. Ambrosio recommendations. Advance diet to heart healthy. INR Continue oral antibiotics with Augmentin. Zosyn Dced 04/19. Avoiding fluoroquinolones and flagyl due to interaction with Coumadin. Asymptomatic bradycardia. 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 A-fib Uncontrolled HTN - Consult Cardiology for bradycardia and pause. BP uncontrolled. Patient also has questions regarding Coumadin, states she has some side effects such as muscle pain. - Patient on Coreg at home. Hold Coreg for now given bradycardia until seen by Cardiology - Started on Norvasc yesterday for uncontrolled HTN. Add Lisinopril 10 mg daily. - INR 1.8, previously therapeutic. Resume Coumadin. Diarrhea: Probably secondary to antibiotics and patient has been a clear liquid diet for while. C diff neg. DW Dr. Saldivar. Will give one dose of I modium to help with symptoms. Continue to monitor. History of chronic atrial fibrillation- continue Coreg for rate control. Hold Coumadin for now. INR yesterday 2.9. INR pending this morning. Plan to resume Coumadin on discharge. Acute kidney injury - Resolved. IVF dced DVT prophylaxis- Restart Coumadin. Discharge Planning Pending further improvement in BP and eval by Cardiology. Asia Duarte MD May 12, 2017 10:35
[2017-05-12] MEDS: WARFARIN SOD 2 MG TAB PO SCH (14:32)
[2017-05-12] MEDS: LISINOPRIL 10 MG TAB PO SCH (14:32)
--- NOTE | 2017-05-12 16:20 | MB ---
cc: CATARINO LIVE M.D., MARK B. M.D. BUCHANAN, SANDRA L. MD DATE OF CONSULTATION 05/12/2017 REASON FOR CONSULTATION Atrial fibrillation with bradycardia and pauses. HISTORY OF THE PRESENT ILLNESS Ms. Colin is a 76-year-old white female patient known to Dr. Live who is recently status post TAVR at [facility] on November 11, 2016 for treatment of critical aortic stenosis. Apparently that procedure went well and she has done well since that time but developed some diarrhea, frequent diarrhea and came to the hospital for evaluation on May 06. She was found to have a contained small perforation of the sigmoid diverticuli and has been treated conservatively since then. Her warfarin was discontinued briefly but has now been restarted. She was therapeutic on admission. She has had no bleeding. She did not require any surgery and she is doing well with antibiotic therapy. She is getting ready for discharge and has been on the leak detection engineer which has revealed mostly atrial fibrillation in the range of 50-60 beats per minute. There has been a few episodes of bradycardia in the 40s and a few pauses one of which was just over 3 seconds in duration. She was restarted on her carvedilol 3.125 mg b.i.d. on admission, that is currently on hold although the nursing staff development coordinator tells me that she did get a dose this morning. She was not for some reason started on her verapamil which I see she was taking at home as well according to Dr. Live's office notes. Her blood pressure has been running on the high side. She is currently lying in bed and really asymptomatic. She denies any lightheadedness or syncope at any time. She denies any chest pains or shortness of breath or any lower extremity edema. PAST MEDICAL HISTORY 1. Hypertension. 2. Congestive heart failure. 3. Critical aortic stenosis. 4. Permanent atrial fibrillation. 5. Long-term warfarin anticoagulation. 6. COPD. 7. Colitis. 8. Pseudomonas UTI. 9. Left breast cancer. She denies history of myocardial infarction, although she does have confirmed coronary artery disease that has been treated medically. Her cardiac catheterization back on August 29, 2016 revealed left ventricular ejection fraction of 50-55% with mild occlusive disease and noted in the LAD. PAST SURGICAL HISTORY Includes: 1. Cardiac catheterization. 2. TAVR. 3. Lumpectomy. 4. Left mastectomy. 5. Retinal tear repair. ALLERGIES FUROSEMIDE EFFECT UNKNOWN. FAMILY HISTORY Father had CAD. Mother lung cancer. Sister glioblastoma. SOCIAL HISTORY The patient was a cigarette smoker, quit August 2016. No alcohol or drugs. Still driving. Lives alone. REVIEW OF SYSTEMS Denies lower extremity edema or claudication. Denies palpitations, lightheadedness or syncope and except for that mentioned in history of present illness is otherwise negative, 12-point review of systems otherwise negative. PHYSICAL EXAMINATION GENERAL: Reveals a elderly thin white female lying in bed in no distress at this time. VITAL SIGNS: Blood pressure 165/76 mmHg, heart rate is 65 and irregular, respiratory rate 18, temperature 97.6, oxygen saturation 98% on room air. HEENT: Head is normocephalic and atraumatic. Pupils equal, round and reactive to light. Sclerae anicteric. Extraocular movements intact. NECK: The neck is supple. There is no adenopathy. No jugular venous tension at 45 degrees. Carotid upstrokes are normal. No bruits. LUNGS: Clear. HEART: PMI is not displaced. S1-S2 normal. There is a grade 2/6 systolic murmur at the base with a 1-2/6 diastolic murmur heard at the left lower sternal border and apex. No gallops or rubs. ABDOMEN: Benign. Bowel sounds present, soft, nontender. No hepatosplenomegaly, masses or bruits. EXTREMITIES: No cyanosis, clubbing or edema. Perfusion is adequate in the upper and lower extremities. There are no femoral bruits. LABORATORY DATA EKG from admission on May 06 shows atrial fibrillation, premature ventricular aberrantly conducted complex rate 76, left axis with left anterior fascicular block and poor R-wave progression. Abnormal EKG. Chest x-ray small bilateral pleural effusions, atelectatic changes in the left base, normal heart size, partial left mastectomy, axillary node dissection. LABORATORY DATA CBC white count 10.3 down from 18.2 on admission. Hemoglobin 11.4, hematocrit 35.5, platelet count 361,000. INR was 3.1 on admission and is 1.8 today. It was 2.2 yesterday and her Coumadin was just restarted. Chemistries sodium 139, potassium 3.8, chloride 110, CO2 21, BUN 6, creatinine 0.71. Telemetry monitoring does show atrial fibrillation with some bradycardia in the 50s at times. There were three pauses documented, the longest one 3.1 seconds. These were apparently asymptomatic. IMPRESSION 1. Sick sinus syndrome with permanent atrial fibrillation and episodes of bradycardia and pauses of greater than 3 seconds. 2. Critical aortic stenosis status post TAVR November 11, 2016. 3. 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 4. Hypertensive heart disease, may need more aggressive control. 5. Normal left ventricular function. 6. History of heart failure with preserved ejection fraction. 7. Diverticulitis with contained sigmoid perforation doing well on conservative medical management. RECOMMENDATIONS The patient is stable from a cardiac standpoint. I will leave her off verapamil since she had not been restarted on that and despite that has been having some bradycardia and pauses with just the low dose carvedilol. I am going to discontinue both the verapamil and the carvedilol for now. Anticipated discharge is in the morning. If she has no more significant bradycardia or pauses overnight she can be safely discharged to home on the remainder of her medications including her Warfarin anticoagulation and blood pressure medications for followup with Dr. Live at her already scheduled appointment for further medication adjustments. He will likely want to do an outpatient 24-hour Holter monitor on her. I have discussed all this in detail with her. I will follow her as needed. Thank you for allowing me to participate in the care of this patient. MD ZOFIA Atkins/ELY /3:04 PM /3:51 PM
[2017-05-13] VITALS (10 sets, daily range): BP systolic 144–191; BP diastolic 72–96; PULSE 55–81; RESP 17–20; TEMP 96.8–98.2; O2SAT 95–97
[2017-05-13] MEDS ORDERED: AMLO5 PO ×2 (08:53→09:38)
[2017-05-13] MEDS ORDERED: LISI10TA3 PO ×2 (08:53→09:38)
[2017-05-13] MEDS ORDERED: AMOX875T2 PO ×2 (08:53→09:38)
--- NOTE | 2017-05-13 08:54 | HHI.DS ---
Discharge Summary Admission Date May 06, 2017 at 22:41 Discharge Date: May 13, 2017 Admitting Diagnosis SIGMOID DIVERTICULITIS WITH CONTAINED SMALL PERFORATION (1) Systolic CHF, chronic ICD Code: I50.22 - Chronic systolic (congestive) heart failure Status: Chronic Procedures None Brief History - From Admission History of present illness from the admitting physician History from patient with his daughter at the bedside. Patient is known to me from her prior hospitalization in October 2016. She reports that she came to the hospital today because she was having diarrhea which started today. She was having diarrhea almost every 5 minutes. Denies any blood in it. I did see some mucus. Not green. But is foul smelling. Reports of low-grade fever around 100s. She reports that she was actually constipated a few days prior to this. Patient reports of history of chronic diarrhea previously prior to October as well. She has had multiple C. difficile studies done as outpatient and inpatient and this was negative. Back in October 2016, she was found to have severe systolic dysfunction with severe aortic stenosis for which she was referred to [place] for TAVR. She did have TAVR on November 11, 2016. She then came to our [facility] for inpatient rehabilitation. She was treated with ciprofloxacin at that time for pseudomonas UTI. She then continued to have diarrhea for which she was treated with Flagyl as an outpatient as well. However diarrhea eventually stopped after the discharge in late November until today. vomited once today after ct contrast but otherwise no vomiting had nausea had chronic slight dyspnea no syncope, no chest pain, no dizziness no urine burning or pain had ua sent at pcp office today but so far could not get clean sample here CBC/BMP: 05/12/17 0650 05/11/17 0905 Significant Findings Laboratory Tests Test 05/10/17 16:00 05/11/17 09:05 05/11/17 19:31 05/12/17 06:50 Urine Protein 30 mg/dL (NEG-TRACE) Urine Occult Blood TRACE (NEG) Urine Leukocyte Esterase MOD (NEG) Urine WBC 11 /hpf (0-5) Blood Urea Nitrogen 6 MG/DL (7-18) Random Glucose 67 MG/DL (74-106) Chloride Level 110 MEQ/L (98-107) Estimat Glomerular Filtration Rate 80 ML/MIN (>89) Prothrombin Time 25.6 SEC (9.8-11.6) Hemoglobin 11.4 GM/DL (11.6-15.3) Mean Corpuscular Hemoglobin 25.7 PG (27.0-34.0) Test 05/12/17 06:58 Prothrombin Time 21.0 SEC (9.8-11.6) PE at Discharge GENERAL: Elderly female in no apparent distress. CARDIOVASCULAR: Bradycardic in the 50s and irregular rhythm without murmurs, gallops, or rubs. RESPIRATORY: Good respiratory efforts. Breath sounds equal and clear to auscultation bilaterally. GASTROINTESTINAL: Abdomen soft, non tender, non distended. Normal active bowel sounds MUSCULOSKELETAL: Extremities without cyanosis, or edema. NEURO: Alert & Oriented x4 to person, place, time, situation. Moves all ext x4 PSYCH: Appropriate mood and affect. Pt update on day of discharge Patient reports she is feeling much better. We discussed discharge planning at length and the changes in her blood pressure medications. She is to follow-up with her operator prefinish outpatient. Hospital Course 76-year-old female admitted with acute sigmoid diverticulitis with perforation per CT. Evaluation and treatment course detailed below: Acute sigmoid diverticulitis with perforation per CT -status post bowel rest, continue IV antibiotics Zofran, IV fluid hydration and supportive care. Appreciate Gen. surgery Dr. Saldivar recommendations. Diet slowly advanced, patient was transitioned from Zosyn to Augmentin. Avoiding fluoroquinolones and flagyl due to interaction with Coumadin. She is discharged on Augmentin to complete a course of antibiotics. Her symptoms completely resolved. Asymptomatic bradycardia. 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 A-fib Uncontrolled HTN - Blood pressure was difficult to control. Her medications were adjusted. She was started on Norvasc and lisinopril with improvement in blood pressure. Unassigned patient was bradycardic. Cardiology was consulted who advised discontinuing Coreg. She is discharged home on Norvasc and lisinopril. Patient to follow-up with her operator prefinish for further titration of antihypertensives as needed. -Coumadin initially held. INR went down to 1.8. Coumadin restarted. Patient is to follow-up for INR check and titration of Coumadin as indicated. Diarrhea: Probably secondary to antibiotics and patient has been a clear liquid diet for while. C diff neg. diarrhea improved. Oral intake improved. History of chronic atrial fibrillation-rate controlled without medication. Coumadin restarted as noted above. Outpatient follow-up advised. Acute kidney injury - Resolved with IV fluid. Pt Condition on Discharge: Good Discharge Disposition: Discharge Home Discharge Time: > 30 minutes Discharge Instructions DIET: Follow Instructions for: Heart Healthy Diet Activities you can perform: Regular-No Restrictions Follow up Referrals: Surgical - 1 Week with Ignacio Saldivar MD New Medications: Clonidine (Clonidine) 0.1 Mg Tab 0.1 MG PO DAILY for SBP>190, DBP>100, #10 TAB 0 Refills Amlodipine (Norvasc) 5 Mg Tab 5 MG PO DAILY, #30 TAB Amoxicillin-Clavulanate (Amoxicillin-Clavulanate) 875-125 mg Tab 875 MG PO Q12HR, #10 TAB not for use in CrCl <30 mL/minute Lisinopril (Lisinopril) 10 Mg Tab 10 MG PO DAILY, #30 TAB Continued Medications: Warfarin (Coumadin) 2 Mg Tab 2 MG PO MWF for Prevent Blood Clot, #30 TAB 0 Refills Warfarin (Coumadin) 1 Mg Tab 1 MG PO TUETHURSATSUN for Prevent Blood Clot, #30 TAB 0 Refills Discontinued Medications: Carvedilol (Coreg) 3.125 Mg Tab 3.125 MG PO BID, #60 TAB 0 Refills Asia Duarte MD May 13, 2017 08:54
--- NOTE | 2017-05-13 08:54 | HHI.DCPOC ---
Discharge Care Plan Diagnosis: (1) Perforated diverticulum (2) mild colitis (3) S/P TAVR (transcatheter aortic valve replacement) (4) Hypertension (5) Atrial fibrillation Goals to Promote Your Health * To prevent worsening of your condition and complications * To maintain your health at the optimal level Directions to Meet Your Goals Take your medications as prescribed Follow your dietary instruction Follow activity as directed Keep your appointments as scheduled Take your immunizations and boosters as scheduled If your symptoms worsen call your PCP, if no PCP go to Urgent Care Center or Emergency Room Smoking is Dangerous to Your Health. Avoid second hand smoke Call the 24-hour hour crisis hotline for domestic abuse at Asia Duarte MD May 13, 2017 08:54
--- NOTE | 2017-05-13 09:11 | PD.CARD.PN ---
Subjective Subjective Remarks Feeling well. No recurrent pauses. Lowest HR in the 50's. No CP, palpitations, SOB or abdominal pain. Wants to go home. Objective Medications Current Medications Medications (Trade) Dose Ordered Sig/Kaden Route PRN Reason Start Time Stop Time Status Last Admin Dose Admin Sodium Chloride (NS Flush) 2 ml UNSCH PRN IV FLUSH FLUSH AFTER USING IV ACCESS 05/06/17 22:45 Sodium Chloride (NS Flush) 2 ml BID IV FLUSH 05/07/17 09:00 05/12/17 22:02 Ondansetron HCl (Zofran Inj) 4 mg Q6H PRN IVP NAUSEA OR VOMITING 05/06/17 22:45 Morphine Sulfate (Morphine Inj) 2 mg Q3H PRN IV PUSH pain >5 05/06/17 22:45 Acetaminophen (Tylenol) 650 mg Q6H PRN PO PAIN SCALE 1 TO 2 05/07/17 10:15 Acetaminophen/ Hydrocodone Bitart ([place] 5-325 Mg) 1 tab Q4H PRN PO PAIN SCALE 3 TO 5 05/07/17 10:15 Naloxone HCl (Narcan Inj) 0.4 mg UNSCH PRN IV PUSH SEE LABEL COMMENTS 05/07/17 10:15 Enoxaparin Sodium (Lovenox Inj) 50 mg Q12H SQ 05/08/17 09:00 Future Hold 05/08/17 08:30 Amoxicillin/ Clavulanate Potassium (Augmentin) 875 mg Q12HR PO 05/10/17 21:00 05/12/17 22:02 Enalaprilat (Vasotec Inj) 1.25 mg Q6H PRN IV PUSH SBP> OR = 180, DBP> OR = 100 05/10/17 15:15 05/10/17 18:07 Clonidine (Catapres) 0.1 mg Q6H PRN PO SBP> OR = 180, DBP> OR = 100 05/11/17 09:45 Amlodipine Besylate (Norvasc) 5 mg DAILY PO 05/12/17 09:00 05/12/17 08:08 Lisinopril (Prinivil) 10 mg DAILY PO 05/12/17 11:00 05/12/17 14:32 Warfarin Sodium (Coumadin) 2 mg DAILY@16 PO 05/12/17 16:00 05/12/17 14:32 Vital Signs / I&O Vital Signs Date Time Temp Pulse Resp B/P (MAP) Pulse Ox O2 Delivery O2 Flow Rate FiO2 05/13/17 04:20 55 05/13/17 04:00 96.8 64 17 144/81 (102) 95 05/13/17 00:20 66 05/13/17 00:00 98.2 77 17 161/96 (117) 97 05/12/17 20:29 69 05/12/17 20:00 97.2 57 17 177/76 (109) 98 05/12/17 16:00 96.8 75 18 161/86 (111) 93 05/12/17 15:16 63 05/12/17 12:00 97.6 65 18 165/76 (105) 98 I/O 05/12/17 05/12/17 05/12/17 05/13/17 05/13/17 05/13/17 07:00 15:00 23:00 07:00 15:00 23:00 Intake Total 720 ml Balance 720 ml Intake Oral 720 ml # Voids 2 4 2 # Bowel Movements 2 Physical Exam BP still running high. Afib rate controlles. No JVD Lungs: CTA Heart: Irreg, s1, s2, 2/6 sytolic and 1/6 diastolic murmur. Ext: No C/C/E Neuro: Non-focal. Assessment and Plan Problem List: (1) Permanent atrial fibrillation ICD Codes: I48.2 - Chronic atrial fibrillation (2) Bradycardia ICD Codes: R00.1 - Bradycardia, unspecified Plan: Pause > 3 seconds resolved after D/C Coreg. (3) Sick sinus syndrome ICD Codes: I49.5 - Sick sinus syndrome (4) S/P TAVR (transcatheter aortic valve replacement) ICD Codes: Z95.2 - Presence of prosthetic heart valve Status: Acute (5) Perforated diverticulum ICD Codes: K57.80 - Diverticulitis of intestine, part unspecified, with perforation and abscess without bleeding (6) Aortic stenosis ICD Codes: I35.0 - Nonrheumatic aortic (valve) stenosis Status: Acute (7) Hypertension ICD Codes: I10 - Essential (primary) hypertension Status: Acute Assessment and Plan Leave off Coreg and verapamil at home. Continue Lisinopril and amlodipine. Warfarin restarted. CV stable for discharge from cardiac standpoint. Arrange f/u with Dr. Mike 1 weeks for BP and INR management. Discussed with patient and medical staff coordinator. Thank you. Shane Corona MD May 13, 2017 09:11
[2017-05-13] MEDS: AMOXICILLIN/CLAVULANATE K 875 MG TAB PO SCH (09:52)
[2017-05-13] MEDS: SODIUM CHLORIDE 0.9% FLUSH 10 ML FLUSH IV FLUSH SCH (09:52)
[2017-05-13] MEDS: LISINOPRIL 10 MG TAB PO SCH (09:52)
[2017-05-13] MEDS: amLODIPine BESYLATE 5 MG TAB PO SCH (09:52)
[2017-05-13] MEDS ORDERED: hydrALAZINE HCL 25 MG TAB PO PRN (10:00)
[2017-05-13] MEDS ORDERED: CLON0.1T PO (10:19)
[2017-05-13] MEDS: WARFARIN SOD 2 MG TAB PO SCH (14:58)
--- NOTE | 2017-05-13 15:59 | HHI.PR ---
Subjective Subjective Notes Doing well No issues Going home today Objective Vitals/I&O Vital Signs Date Time Temp Pulse Resp B/P (MAP) Pulse Ox O2 Delivery O2 Flow Rate FiO2 05/13/17 13:27 81 168/72 (104) 05/13/17 11:50 97.3 20 96 Labs Date/Time Source Procedure Growth Status 05/10/17 16:00 Urine Random Urine Urine Culture - Final NO GROWTH IN 48 HOURS. Complete Cardiovascular: Regular Lungs: Clear Abdomen: Non-distended, Non-tender Extremities: No edema A/P Assessment and Plan 76 year old female with acute diverticulitis with small contained perforation -Low residue diet -Continue Augmentin -HEPAS to manage cardiac meds; going to follow up with Safety Security Officer next week -Stable from GS standpoint -Follow up 1 week Attending Statement patient seen at bedside pain better, wbc normal continue abx htn better d/c planning Attestation The exam, history, and the medical decision-making described in the above note were completed with the assistance of the mid-level provider. I reviewed and agree with the findings presented. I attest that I had a [id number] encounter with the patient on the same day, and personally performed and documented my assessment and findings in the medical record. Enid Rapp May 13, 2017 15:59 Ignacio Saldivar MD May 16, 2017 23:06
== END 2017-05-13 15:46 | disposition home or self-care (01) | DRG 392 ==
LOC: NEPE 19:32 → NEDA 22:41 → HOCA 05-07 01:36
PROVIDERS: ADMIT Family Medicine; ATTEND Family Medicine
DX: K57.20 Diverticulitis of large intestine with perforation and abscess without bleeding (principal); N17.9 Acute kidney failure, unspecified; I49.5 Sick sinus syndrome; I11.0 Hypertensive heart disease with heart failure; I50.22 Chronic systolic (congestive) heart failure; I48.2 Chronic atrial fibrillation; J44.9 Chronic obstructive pulmonary disease, unspecified; I25.10 Atherosclerotic heart disease of native coronary artery without angina pectoris; I44.4 Left anterior fascicular block; E87.6 Hypokalemia; M19.90 Unspecified osteoarthritis, unspecified site; H91.90 Unspecified hearing loss, unspecified ear; Z79.01 Long term (current) use of anticoagulants; Z85.3 Personal history of malignant neoplasm of breast; Z87.891 Personal history of nicotine dependence; Z90.12 Acquired absence of left breast and nipple; Z92.3 Personal history of irradiation; Z95.2 Presence of prosthetic heart valve
CPT/HCPCS: 80048; 80053; 81001; 83690; 84443; 85025; 85027; 85610; 85730; 87086; 87493; 87641; 93005; J1650; J2405; J2543; J3480; J7030